=== PATIENT | male | born 1960 ===

== ENCOUNTER 2017-02-05 07:30 | Inpatient (IN) | payer OTHER ==
[2017-01-06 10:41] VITALS: BMI 29.2
[2017-04-10 07:01] LABS: BASO # 0.07 K/mm3 (0.0-2.0); BASO % 0.9 % (0.0-3.0); EOS # 1.6 (0.0-0.7); EOS % 19.8 % (1.5-5.0); GRAN # 2.8 (1.4-6.5); GRAN % 35.8 % (50.0-68.0); HEMATOCRIT 38.1 % (42.0-52.0); LYMPH # 2.9 (1.2-3.4); MEAN CORPUSCULAR HEMOGLOBIN 29.1 pg (25.0-35.0); MEAN CORPUSCULAR HGB CONC 33.9 g/dl (31.0-37.0); MEAN PLATELET VOLUME 10.2 fl (7.0-11.0); MONO # 0.5 (0.1-0.6); MONO % 6.5 % (1.0-6.0); RED CELL DISTRIBUTION WIDTH 12.7 % (11.5-14.5); WHITE BLOOD COUNT 7.8 10^3/ul (4.5-11.0)
[2017-04-10 07:07] LABS: INR 0.99 (0.93-1.08); PARTIAL THROMBOPLASTIN TIME 25.7 Seconds (23.7-30.8)
[2017-04-10] MEDS ORDERED: Bupivacaine 0.5% Inj(30mL) ONE (07:13)
[2017-04-10] MEDS ORDERED: Absorbable Gelatin Sponge Size 100 ONE (07:13)
[2017-04-10] MEDS ORDERED: Bacitracin Ointment 30 GM TUBE ONE (07:13)
[2017-04-10] MEDS ORDERED: Thrombin Topical 20,000 Intl Units Spray Kit TOP ONE (07:13)
[2017-04-10] MEDS ORDERED: Lidocaine 1% w Epi 1:100,000 Inj ONE (07:13)
[2017-04-10 07:28] LABS: BLOOD UREA NITROGEN 13 mg/dL (7-21); CARBON DIOXIDE 25 mmol/L (21-33); CHLORIDE 107 mmol/L (95-110); GFR AFRICAN-AMERICAN > 60; GLUCOSE,RANDOM 159 mg/dL (70-110); POTASSIUM 4.1 mmol/L (3.6-5.0); SODIUM 143 mmol/L (132-148)
[2017-04-10] MEDS ORDERED: Propofol 10 mg/ml 2,000 MG/200 ML VIAL ONE (07:34)
[2017-04-10] MEDS ORDERED: Remifentanil 2 MG PDS IV ONE ×2 (07:34→12:06)
[2017-04-10] MEDS ORDERED: Heparin 10,000 Units/ml ONE (07:56)
[2017-04-10] MEDS ORDERED: Vancomycin 1 g Inj ONE (08:46)
[2017-04-10] MEDS ORDERED: Rocuronium 10 mg/ml (5 ml) ONE (10:33)
[2017-04-10] MEDS ORDERED: Succinylcholine 200 mg/10 ml Inj IV ONE (10:33)
[2017-04-10] MEDS ORDERED: Morphine 4 mg/ml ISec ONE (10:34)
[2017-04-10] MEDS ORDERED: Sodium Chloride 0.9% 10 ML IV ONE (11:38)
[2017-04-10] MEDS ORDERED: Morphine 1 mg/ml preservative-free Inj(Duramorph) ONE (12:28)
[2017-04-10] MEDS ORDERED: HYDROmorphone 0.5 mg/0.5 ml ISec IVP PRN ×2 (13:02→13:12)
[2017-04-10] MEDS ORDERED: Morphine PCA 1 mg/ml (25ml) 25 ML IV PRN (13:10)
[2017-04-10] MEDS ORDERED: ACETAMINOPHEN 500 MG PO PRN ×2 (13:13→13:19)
[2017-04-10] MEDS ORDERED: Potassium Chl 10 mEq in D5-1/2 10 ML in Dextrose 5%/0.45% NS 1,000 ML IV SCH (13:30)
[2017-04-10] MEDS ORDERED: HYDROmorphone 0.5 mg/0.5 ml ISec ONE (13:32)
[2017-04-10] MEDS ORDERED: Potassium Chl 10 mEq in D5-1/2 1,000 ML IV SCH (13:45)
--- NOTE | 2017-04-10 15:47 | RAD ---
PROCEDURE: Fluoroscopy up to 1 hour HISTORY: L 4-5 , L 5 - S 1 DECOMPRESSION / FIXATION FUSION COMPARISON: TECHNIQUE: Fluoroscopy was provided in the operating room. 72 seconds of fluoroscopy time. Two images were submitted FINDINGS: There has been intrapedicular and intradiscal fusion at L4-5 and L5-S1 IMPRESSION: As above
[2017-04-10] MEDS ORDERED: HYDROmorphone 0.2 mg/ml (25ml) 25 ML IV PRN (15:49)
[2017-04-10] MEDS: Lactated Ringer's 1,000 ML IV SCH (16:00)
[2017-04-10] MEDS ORDERED: Pneumococcal 23-Valent Vaccine IM ONE (16:42)
[2017-04-10] MEDS: Insulin Reg-LOW-Coverage SC SCH ×2 (17:22→22:11)
[2017-04-10] MEDS ORDERED: Non Formulary Medication (Simvastatin [Simvastatin] 20 MG) PO SCH (18:00)
--- NOTE | 2017-04-10 20:04 | CP.PCM.HP ---
<KAELA HUGO - Last Filed: 04/10/17 19:57> History of Present Illness - History of Present Illness History of Present Illness: CC: S/P L3-4, 4-5 Decompression HPI: Mr. Paz is a 56 year old male with a past medical history significant for HTN, HLD, DM2, BPH, and disc disease who presented for post- operative observation of L3-4, 4-5 decompression. Patient reports that he began to have problems in his back starting in 2013 when he fell at work while lifting heavy object. He had managed the back pain conservatively, with NSAID's and one steroidal injection, until the pain became unbearable. Patient reports that his only pain is associated with his surgical sight and that he can already tell that the pain that was radiating down to his legs has resolved. He reports no other symptoms at this time. He denies headache, fever, chills, weight loss, changes in his vision, dysphagia, cough, shortness of breath, pleurisy, chest pain, palpitations, N/V, diarrhea, constipation, fecal incontinence or any urinary symptoms (including incontinence). PMH: HTN, HLD, DM2, BPH, and disc disease PSH: 2 reconstructive R ankle surgeries with titanium screws placed Family: DM2 in both parents and brother Social: Denies tobacco, alcohol or illicit drug use Allergies: NKDA Home Medications: As per MAR Present on Admission - Present on Admission Any Indicators Present on Admission: No Review of Systems - Review of Systems Review of Systems: Please refer to HPI Past Patient History - Past Social History Smoking Status: Never Smoked - CARDIAC Hx Cardiac Disorders: Yes Hx Hypercholesterolemia: Yes Hx Hypertension: Yes Hx Pacemaker: No - PULMONARY Hx Respiratory Disorders: No - NEUROLOGICAL Hx Neurological Disorder: No - HEENT Hx HEENT Problems: No - RENAL Hx Chronic Kidney Disease: No - ENDOCRINE/METABOLIC Hx Endocrine Disorders: Yes Hx Diabetes Mellitus Type 2: Yes - HEMATOLOGICAL/ONCOLOGICAL Hx Blood Disorders: No - INTEGUMENTARY Hx Dermatological Problems: No - MUSCULOSKELETAL/RHEUMATOLOGICAL Hx Musculoskeletal Disorders: Yes Hx Falls: Yes Hx Fractures: Yes (RIGHT ANKLE SX WITH 2 HARDWARE NOW ONE SCREW.LUMBAR DISC DERANGEMENT.) - GASTROINTESTINAL Hx Gastrointestinal Disorders: Yes (CONSTIPATION) - GENITOURINARY/GYNECOLOGICAL Hx Genitourinary Disorders: Yes Hx Prostate Problems: Yes (BPH) - PSYCHIATRIC Hx Psychophysiologic Disorder: No Hx Emotional Abuse: No Hx Physical Abuse: No Hx Substance Use: No - SURGICAL HISTORY Hx Surgeries: Yes (LUMBAR DISC DERANGEMENT PL3-21 DECOMPRESSION,L4-S1 FIXATION AND FUSION.04/03) Other/Comment: RIGHT ANKLE SURGERY WITH HARDWARE X 2 NOW HAS ONE SCREW. - ANESTHESIA Hx Anesthesia Reactions: No Hx Malignant Hyperthermia: No Meds Allergies/Adverse Reactions: Allergies Allergy/AdvReac Type Severity Reaction Status Date / Time No Known Allergies Allergy Verified 04/10/17 14:48 Physical Exam - Constitutional Appears: Non-toxic, No Acute Distress - Head Exam Head Exam: ATRAUMATIC, NORMOCEPHALIC - Eye Exam Eye Exam: EOMI, Normal appearance, PERRL Pupil Exam: NORMAL ACCOMODATION - ENT Exam ENT Exam: Mucous Membranes Moist, Normal Exam - Neck Exam Neck exam: Positive for: Full Rom, Normal Inspection. Negative for: Tenderness - Respiratory Exam Respiratory Exam: Clear to Auscultation Bilateral, NORMAL BREATHING PATTERN. absent: Rales, Rhonchi, Wheezes, Respiratory Distress - Cardiovascular Exam Cardiovascular Exam: REGULAR RHYTHM, RRR, +S1, +S2. absent: Tachycardia, Systolic Murmur - GI/Abdominal Exam GI & Abdominal Exam: Normal Bowel Sounds, Soft. absent: Distended, Firm, Guarding, Tenderness - Exam Exam: absent: Bladder Distension - Extremities Exam Extremities exam: Positive for: normal capillary refill, pedal pulses present. Negative for: calf tenderness, pedal edema - Back Exam Back exam: paraspinal tenderness, vertebral tenderness Additional comments: post surgical wound dressing from approximately T8 to anal cleft is clean dry and intact - Neurological Exam Neurological exam: Alert, Oriented x3 - Psychiatric Exam Psychiatric exam: Normal Affect, Normal Mood - Skin Skin Exam: Dry, Intact, Normal Color, Warm Results - Vital Signs Recent Vital Signs: Last Vital Signs Temp 98.6 F 04/10/17 16:21 Pulse 113 H 04/10/17 17:08 Resp 22 04/10/17 16:21 BP 176/96 H 04/10/17 17:08 Pulse Ox 96 04/10/17 16:21 - Labs Result Diagrams: 04/10/17 06:40 04/10/17 06:40 Labs: Laboratory Results - last 24 hr 04/10/17 04/10/17 04/10/17 06:40 06:40 06:40 WBC 7.8 RBC 4.43 Hgb 12.9 L Hct 38.1 L MCV 86.0 MCH 29.1 MCHC 33.9 RDW 12.7 Plt Count 263 MPV 10.2 Gran % 35.8 L Lymph % (Auto) 37.0 H Gray % (Auto) 6.5 H Eos % (Auto) 19.8 H Baso % (Auto) 0.9 Gran # 2.80 Lymph # 2.9 Gray # 0.5 Eos # 1.6 H Baso # 0.07 PT 10.7 INR 0.99 APTT 25.7 Sodium 143 Potassium 4.1 Chloride 107 Carbon Dioxide 25 Anion Gap 15 BUN 13 Creatinine 1.0 Est GFR ( Amer) > 60 Est GFR (Non-Af Amer) > 60 POC Glucose (mg/dL) Random Glucose 159 H Calcium 9.0 Blood Type Antibody Screen BBK History Checked 04/10/17 04/10/17 06:40 16:34 WBC RBC Hgb Hct MCV MCH MCHC RDW Plt Count MPV Gran % Lymph % (Auto) Gray % (Auto) Eos % (Auto) Baso % (Auto) Gran # Lymph # Gray # Eos # Baso # PT INR APTT Sodium Potassium Chloride Carbon Dioxide Anion Gap BUN Creatinine Est GFR ( Amer) Est GFR (Non-Af Amer) POC Glucose (mg/dL) 225 H Random Glucose Calcium Blood Type O POSITIVE Antibody Screen Negative BBK History Checked Patient has bt Assessment & Plan - Assessment and Plan (Free Text) Assessment: 56 year old male with a past medical history significant for HTN, HLD, DM2, BPH , and disc disease who presented for post-operative observation of L3-4, 4-5 decompression Plan: 1. S/P L3-4, 4-5 decompression -IVF: LR at 100cc/hr -Pain Control: Dilaudid 0.5mg IVP Q2H PRN and Tylenol 650mg Q6H PRN -UOP: Mosher Catheter in place with approximately 700ml of yellow urine -Diet: Hearth Healthy Carbohydrat Modified, may eat as tolerated -continue ferrous sulfate and ascorbic acid -wound Care team consulted, appreciate all assistance in this patient's care -afebrile since admission to hospital -PT/OT evaluation and treatment as tolerated -will follow up neurosurgical recommendations 2. HTN -continue Lopressor -Hydralazine 10mg IVP Q6H PRN for SBP over 170mmHG -continue to monitor 3. HLD -continue lipitor 4. DM2 -continue metformin -SSI-Low ACHS -Fingersticks ACHS -Carbohydrate Consistent Diet-Moderate 5. BPH -continue flomax -mosher catheter in place 6. GI/DVT Prophylaxis -Protonix/scd's Patient seen and case discussed with attending, Dr. Holly Estrada. - Date & Time Date: 04/10/17 Time: 16:00 Decision To Admit - Pt Status Changed To: Hospital Disposition Of: Inpatient Admission - Admit Certification Admit to Inpatient:: After my assessment, the patient will require hospitalization for at least two midnights. This is because of the severity of symptoms shown, intensity of services needed, and/or the medical risk in this patient being treated as an outpatient. - . Bed Request Type: Med/Surg <Holly Estrada - Last Filed: 04/12/17 10:27> Results - Vital Signs Recent Vital Signs: Last Vital Signs Temp 99.8 F H 04/12/17 08:45 Pulse 120 H 04/12/17 08:45 Resp 20 04/12/17 08:45 BP 145/92 H 04/12/17 08:45 Pulse Ox 95 04/11/17 16:22 - Labs Result Diagrams: 04/12/17 08:00 04/12/17 08:00 Labs: Laboratory Results - last 24 hr 04/11/17 04/11/17 04/11/17 09:11 11:27 16:37 WBC RBC Hgb Hct MCV MCH MCHC RDW Plt Count MPV Gran % Lymph % (Auto) Gray % (Auto) Eos % (Auto) Baso % (Auto) Gran # Lymph # Gray # Eos # Baso # Sodium Potassium Chloride Carbon Dioxide Anion Gap BUN Creatinine Est GFR ( Amer) Est GFR (Non-Af Amer) POC Glucose (mg/dL) 192 H 153 H Random Glucose Calcium Phosphorus Magnesium Total Bilirubin AST ALT Alkaline Phosphatase Total Protein Albumin Globulin Albumin/Globulin Ratio Hepatitis A IgM Ab Negative Hep Bs Antigen Negative Hep B Core IgM Ab Negative Hepatitis C Antibody Negative 04/11/17 04/12/17 04/12/17 21:20 07:16 07:41 WBC RBC Hgb Hct MCV MCH MCHC RDW Plt Count MPV Gran % Lymph % (Auto) Gray % (Auto) Eos % (Auto) Baso % (Auto) Gran # Lymph # Gray # Eos # Baso # Sodium Potassium Chloride Carbon Dioxide Anion Gap BUN Creatinine Est GFR ( Amer) Est GFR (Non-Af Amer) POC Glucose (mg/dL) 161 H 191 H Random Glucose Calcium Phosphorus 3.1 Magnesium 1.0 L* Total Bilirubin AST ALT Alkaline Phosphatase Total Protein Albumin Globulin Albumin/Globulin Ratio Hepatitis A IgM Ab Hep Bs Antigen Hep B Core IgM Ab Hepatitis C Antibody 04/12/17 04/12/17 08:00 08:00 WBC 13.5 H D RBC 2.96 L Hgb 8.6 L Hct 25.6 L MCV 86.5 MCH 29.1 MCHC 33.6 RDW 12.5 Plt Count 184 MPV 10.3 Gran % 76.8 H Lymph % (Auto) 15.0 L Gray % (Auto) 7.7 H Eos % (Auto) 0.4 L Baso % (Auto) 0.1 Gran # 10.36 H Lymph # 2.0 Gray # 1.0 H Eos # 0.1 Baso # 0.02 Sodium 139 Potassium 3.7 Chloride 103 Carbon Dioxide 27 Anion Gap 13 BUN 9 Creatinine 0.9 Est GFR ( Amer) > 60 Est GFR (Non-Af Amer) > 60 POC Glucose (mg/dL) Random Glucose 173 H Calcium 8.1 L Phosphorus Magnesium Total Bilirubin 1.2 AST 84 H ALT 55 Alkaline Phosphatase 66 Total Protein 5.8 Albumin 3.0 Globulin 2.8 Albumin/Globulin Ratio 1.1 Hepatitis A IgM Ab Hep Bs Antigen Hep B Core IgM Ab Hepatitis C Antibody Attending/Attestation - Attestation I have personally seen and examined this patient.: Yes I have fully participated in the care of the patient.: Yes I have reviewed all pertinent clinical information: Yes Notes (Text): I have seen and examined the patient at bedside. Agree with the above note with the following additions/ exceptions: Briefly this is 56 year old male with history of HTN, HLD, DM2, BPH, and lumbar radiculopathy who underwent L3-4, 4-5 decompression today by neurosurgeon. His pain is being manged by NS. Continue mosher catheter for now. Continue lopressor aand metformin. Add ISS. Continue flomax. Upon discharge patient will follow up with PMD of choice. Dr Holly Estrada
[2017-04-10] MEDS: HYDROmorphone 0.5 mg/0.5 ml ISec IVP PRN ×2 (20:25→23:52)
--- NOTE | 2017-04-10 22:01 | OP ---
PROCEDURE DATE: PREOPERATIVE DIAGNOSES: Lumbar disk derangement with stenosis and chronic low back pain with radiculopathy. POSTOPERATIVE DIAGNOSES: Lumbar disk derangement with stenosis and chronic low back pain with radiculopathy with gross instability noted in L5-S1. SURGEON: Puneet Bledsoe MD TYPE OF ANESTHESIA: General endotracheal. ESTIMATED BLOOD LOSS: 400 mL/125 mL returned by [employer]. COMPLICATIONS: None. JUSTIFICATION: The patient is status post a significant fall on the job. Since then, he has been suffering with severe low back pain with radiation to his lower extremities. He has failed rather extensive conservative workup. MRI documented disk derangement with herniation, stenosis, annular tears at both L4-L5 and L5-S1 with stenosis at L3-L4. There was a question of a mild sublux at L5-S1. The patient was offered the possibility of operative intervention by decompression diskectomy and interbody fusion at the lower levels and decompression at L3-L4. The nature of this recommendation, the rationale behind it, potential risks and complications, realistic chance of success, alternatives, recovery time, correction outlook all discussed at length through a frog catcher. He fully understood all the above and elected to proceed as offered. DESCRIPTION OF PROCEDURE: The patient was taken to the operating room. He was intubated. He was anesthetized. He was hooked up to electrophysiologic monitor and was carefully placed on the OR table in the prone position on a Gagan frame with maximal flexure at L5, only to get his belly above the bed. Care was taken to protect his face, eyes, endotracheal tube, and all bony prominences. The entire low back region was then scrubbed with acetone scrubbing and draped. The incision was traced out from L3 through the sacrum. This was infiltrated with lidocaine. After prepping and draping, the incision was made with a #10-blade knife, carried down to the level of fascia. The Bovie cautery was used to incise the fascia, strip the paraspinal muscles off the spinous processes and lamina of L3 and up to the sacrum. A confirmatory x-ray was taken. The exposure was then widened out laterally bilaterally to expose the transverse processes of L4, L5, and the sacral ala bilaterally. Bleeding was controlled throughout with Bovie cautery and thrombinated powdered Gelfoam. At this point, harvestation was performed. A 5-gauge trocar was inserted into the superior-posterior iliac crest on the right. Approximately 120 mL of bone marrow was then harvested. This was then spun down to obtain the bone marrow. Mesenchymal cells were used in the fusion. The decompression was done by removing the spinous process at S1, L5, and L4 and the bottom of L3. This was done with a Leksell rongeur. The lamina were further thinned in this manner. This bone was later saved for bone marrow harvestation. Of note, it was at this point that was noted gross instability of the L5-S1 level. The lamina was essentially floating indicating a complete traumatic spondylolisthesis, using small bites of a Kerrison and a Leksell rongeur essentially to remove the lamina of L5 in toto. We continued the laminectomy all the way through L4 and inferior two-thirds of L3. We then widened it out laterally bilaterally. At L3-L4, where we were only decompressing and we wanted to do the minimal decompression as possible, we did a mild medial facetectomy and mostly removed ligament flavum, which was causing most of the compression. We left the facet joints and their capsules entirely intact. At L4-L5 and L5-S1, we performed generous medial facetectomies. Of course at L5-S1, the facet had been entirely removed by simply lifting up the lamina. We exposed both disk spaces widely bilaterally. The epidural veins were coagulated with bipolar cautery. At this point, we performed the diskectomy at L5-S1. We gently retracted the left S1 nerve root medially, incised the disk, removed disk materials with rongeurs and then used 8 x 11 mm scrapers to further remove all disk materials, soft tissue, as well as annulus beginning at the claudication, which was completed with very large curette. Additionally, there was a central herniation that we removed by using a downbiting curette, forcing it into the disk space and thus removing it. This identical procedure was then performed on the right side, after which we packed all bone grafting material, which included chopped up products of decompression, additional allograft, bone matrix protein, liberally into the disk space. We then placed a 9 x 11 mm carbon fiber fusion case packed with bone grafting material. This was tapped into disk space until it was well seated and counter sunk. This was confirmed visually and fluoroscopically. The identical bone grafting and implant was then placed on the left side and again lateral fluoroscopy and visual inspection confirmed excellent position of both of these grafts. We then performed the same procedure at right L4-L5. At this time beginning on the right side, gently retracted the L5 nerve root medially, incised the disk, emptied it with rongeurs, used 11 x 8 mm scrapes, completely removing all disk material, decorticating the endplate above and below with rose marie and large curettes. Again, this procedure was then performed back on the left side after which we again tacked the disk space with all bone grafting material. We again placed a 9 x 11 mm carbon fiber fusion case implant, tapped it in until it was counter sunk and then again this was again performed back on the right side and again visual inspection and lateral fluoroscopy confirmed excellent position of both of these implants. At this point, we used a high speed drill to decorticate the lateral surfaces through the posterolateral fusion, which included the transverse processes of L4-L5, the lateral pars, the lateral facet and a sacral ala. At this point, we turned our attention to the placement of the pedicular screws. The technique was used by identifying the thecal entrance visually and fluoroscopically drilling the cortical bone, passing a gear shift down the barrel of the pedicle into the vertebrae and then placing the appropriate size screw. Additionally, the passage way was tested with a ball-tip probe to ensure circumferential bone and additionally the gearshift and each screw was stimulated with electrocautery while monitoring EMG activity to ensure there was no evidence of electrophysiological breech. Using this technique, on the right side we placed a 50 mm length and 6.0 diameter screw at L4, on the left the same diameter 45 mm length at L5 bilaterally in place 6.0 diameter screws, 40 mm length, at last the S1 we placed bilaterally 7.0 diameter screws, 40 mm length. No screw elicited any EMG activity and both lateral and AP fluoroscopy confirmed excellent position of all 6 of these screws. At this point, we placed the appropriate size titanium rods and the 3 screw head on each side. These were then locked in place with locking nuts and each locking nut was torque wrenched tight. We then placed the appropriate size cross-connector and torque wrenched each connection site tight as well. At this point, we packed all remaining bone grafting material liberally into the posterolateral gutters to achieve the posterolateral fusion. At this point, we ensured that there was no remaining foreign matter, bone graft, etc., and/or around the epidural space. This was gently irrigated with antibiotic solution. A layer of thrombinated-powered Gelfoam followed by layer of solid Gelfoam was placed in the epidural space. Bleeding was noted to be completely controlled at this point in time. We then reapproximated the muscle using interrupted 0 Vicryl. As the patient is a diabetic, we placed on Bacitracin powered above the muscle between the fascia. The fascia was then closed using interrupted 0 Vicryl. The wound copiously irrigated with antibiotic solution. A further layer of vancomycin was placed above the fascia. The subcutaneous was closed using interrupted 2-0 Vicryl and the skin was closed using wilfrido. Bacitracin ointment and a heavy dressing was placed. The patient was turned back onto a supine position. He was extubated without difficulty, noted moving all groups of both lower extremities with excellent strength on his way to recovery room. All counts were correct. There were no complications of either sensory evoke potentials and free-running EMG remained stable over the course of this procedure. Puneet Bledsoe MD
[2017-04-11] MEDS: HYDROmorphone 0.5 mg/0.5 ml ISec IVP PRN ×9 (05:49→22:42)
[2017-04-11 07:20] LABS: BASO # 0.02 K/mm3 (0.0-2.0); BASO % 0.2 % (0.0-3.0); EOS % 0.5 % (1.5-5.0); GRAN # 5.35 (1.4-6.5); GRAN % 65.5 % (50.0-68.0); HEMATOCRIT 26.9 % (42.0-52.0); LYMPH # 1.9 (1.2-3.4); LYMPH % 22.8 % (22.0-35.0); MEAN CELL VOLUME 85.1 fl (80.0-105.0); MEAN CORPUSCULAR HEMOGLOBIN 29.1 pg (25.0-35.0); MEAN CORPUSCULAR HGB CONC 34.2 g/dl (31.0-37.0); MEAN PLATELET VOLUME 10.1 fl (7.0-11.0); MONO # 0.9 (0.1-0.6); RED CELL DISTRIBUTION WIDTH 12.5 % (11.5-14.5); WHITE BLOOD COUNT 8.2 10^3/ul (4.5-11.0)
--- NOTE | 2017-04-11 07:21 | OP ---
PROCEDURE DATE: 04/10/2017 PREOPERATIVE DIAGNOSES: 1. Disk derangement L4-5, L5-S1. 2. Spinal stenosis L3-S1. POSTOPERATIVE DIAGNOSES: 1. Disk derangement L4-5, L5-S1. 2. Spinal stenosis L3-S1. PROCEDURE: 1. Posterior lumbar interbody and lateral fusion of L4-5, L5-S1. 2. L3-S1 lumbar decompression. 3. Use of intervertebral devices. 4. Use of segmental spinal instrumentation. 5. Use of autograft by means of bone marrow aspiration. SURGEON: Timbo Em MD TYPE OF ANESTHESIA: General endotracheal tube intubation. PROCEDURE IN DETAIL: The patient was brought to the operating room and general anesthesia was achieved. Spinal cord monitoring leads were placed throughout the patient's body. Real time monitoring was done by lift team technician in the room. Remote monitoring done by a physician as well. Intravenous antibodies were administered and sequential compression boots were placed to each of patient's legs. A George catheter was inserted after the antibiotics were administered and the patient was transferred and was placed in prone position on the operating table on a Gagan frame, keeping the abdomen free from pressure anteriorly. Care was taken to protect the elbows and knees from pressure points. A sterile drape was used to seal the patient's perineal region from the operative field and his back was scrubbed and then sterilely prepped and draped. Level of the incision was noted under fluoroscopy and infiltrated lidocaine with epinephrine. An incision was made sharply in the midline taking out subcutaneous tissue with sharp and blunt dissection. Hemostasis was achieved using electrocautery. Fascia was divided and stripped laterally with Ray elevators to take the tissue off the spinous processes and lamina each side after the level of the transverse processes at the L4 and L5 levels along with the sacral ala on each side. Hemostasis was achieved with electrocautery and thrombinated Gelfoam powder. Fluoroscopic views confirmed at the appropriate levels. A Litzy bone cutter and Leksell rongeur were used to remove the spinous processes and thinned down the lamina. Laminectomy was then carried out in a caudad-cephalad fashion using Kerrison rongeurs. At the 4-5 and 5-1 levels, the laminectomy was taken out laterally far enough that we could easily pass a 9 x 11 trial broach to confirm that we had room for intervertebral devices later in the case. The patient had fairly significant stenosis due to the hypertrophied ligamentum up at the 3-4 level, but again this was decompressed from 3-[address] to the sacrum. Hemostasis was achieved with thrombinated Gelfoam powder as well as bipolar cautery. A trocar at that time was placed in a posterior right ileum and 120 mL of bone marrow aspirate was obtained. This was passed off the table to the lift team technician who processed it to the harvest systems thoroughly. The collected mesenchymal stem cells was then returned to the OR table where they were used to soak strips and cubes to confirm sponge as well as process through the IC Chamber. The patient's laminar bone along with along with the IC Chamber bone and Optium putty was used to create excellent bone grafting substrate. Hemostasis was achieved at the marrow donor site with the use of thrombinated Gelfoam powder. We then turned our attention to the fusion part of the procedure. The thecal sac was gently retracted and the annulus at L5-S1 incised on the left side. Disk material was removed with endplate rose marie up to including a size 11 along with the pituitary rongeur and the ring and spoon curettes. In similar fashion on the right side, same technique was used to empty any remaining tissue from the disk space. The bone grafting substrate along with the marrow soaked confirmed cubes were packed into the disk space and a 9 x 11 graft packed cage was then tamed into place and countersunk. We moved back to the left side and inspected the area for any remaining disk material and then the bone grafting substrate and marrow soak cubes were packed into the disk space and another 9 x 11 graft packed cage was inserted and countersunk. Hemostasis was achieved with bipolar cautery as well as thrombinated Gelfoam powder. We then moved up to the 4-5 level where in similar fashion the annulus was incised and disk material removed using the pituitary rongeur and the endplate rose marie up to including size 11. Ring and spoon curettes were then used to remove any remaining tissue from the endplates. Similar technique was used on the left side, then to completely empty out the disk space. Again the marrow soaked cubes and bone grafting substrate were packed into the empty disk space and another graft pack 9 x 11 cage inserted. We then came back to the right side. Some remaining disk material that was seen in the midline was removed and then the disk space filled with bone grafting substrate and the marrow soaked cubes and another the left 9 x 11 graft packed cage was tamped into place and countersunk. The high speed drill was then used to decorticate the transverse processes of L4 and L5 in each side along with the sacral ala. The 4-5 and 5-1 facets were decorticated well. It should be noted that the time of the exposure, marked amount of laxity was noted at the 5-1 level. There was complete incompetence of the posterior elements before any other decompression was done. Very similar to what would be seen when the spondylolisthesis deformity with again incompetence to the pars on each side. The superior facets had been removed at the time of the decompression due to the laxity and they were morselized and added to the bone grafting substrate. After the decortication under fluoroscopic guidance, an entry point was made for the right L4 pedicle with high speed drill. Gearshift tool was used to create a channel through the pedicle and the bone integrity confirmed with a ball tip probe and a 6.0 x 50 mm EXPEDIUM screw inserted. In similar fashion, the drill and the gearshift tool along the ball tip probe were used on the left side and a 45 mm x 6.0 EXPEDIUM screw inserted. Stimulation revealed no electrophysiologic abnormality. We then moved down to the L5 level where the drill was used to create the entry points of the left L5 screw under fluoroscopic guidance. Gearshift tool create the channel through the pedicle and the bone integrity confirmed with the ball tip probe and a 6.0 x 50 mm screw was inserted. On the right side, similar technique again was used with all the instruments and another 50 x 6.0 screw was inserted. Once again, stimulation of the gearshift tool on each side along with the shank and top of each screw revealed no abnormalities. We then moved down to the sacral level. A trial shannan was placed in the L4 and L5 screws to locate the best level for the S1 screw. Using fluoroscopic guidance, this was then used as a marker and a drill used to create the entry point. The gearshift tool created channel for the screw and bone integrity confirmed with the ball tip probe and 40 mm x 7.0 screw was inserted. Same technique was used on the left side, line up the other screws along with the drill and the gearshift tool. After the ball tip probe confirmed bone integrity, another 7.0 x 40 mm EXPEDIUM screw inserted. Pre-Cut lordotic 65 mm rods were then used to connect the 3 screws on each side and the shannan was secured to the screws using caps to tighten and then appropriately torqued. The midline was inspected for any bony debris and copiously irrigated with antibiotic solution. Hemostasis was achieved with thrombinated Gelfoam powder as well as bipolar cautery. A large piece of solid Gelfoam was used to cover the exposing neural elements. The remaining bone graft and substrate was packed laterally to bridge the decorticated transverse processes of L4 and L5 to the sacral ala on each side. An A6 CrossLink was then used to connect the 2 rods between the L4 and L5 screws to add rotational stability and this was appropriately tightened and torqued as well. Final AP and lateral fluoroscopic views with excellent position of the hardware as well as intervertebral devices. The wound was then closed in layers and interrupted sutures of 0 Vicryl for the muscle. This was then irrigated with some vancomycin powder placed on top of the muscle bed. The fascia was then approximated over this again with interrupted sutures of 0 Vicryl. The subcutaneous tissue was copiously irrigated with antibiotic solution. A 30 mL of 0.5% Marcaine injected to paraspinal muscles to help with postoperative pain relief. Remaining vancomycin powder was placed on top on the fascia and coated the subcutaneous tissues, which were then approximated using the interrupted sutures of 2-0 Vicryl. The skin was closed with wilfrido. Bacitracin ointment and a compressive dressing applied. The patient gently transferred back on to the stretcher in supine position. He is awake and extubated. He was taken to recovery room in stable condition, having tolerated the procedure well. ESTIMATED BLOOD LOSS: 400 mL. He received 3 liters of crystalloid during the operation and received 125 mL pack from the Cell Saver. He was actively moving all extremities and upon his arrival to recovery room, no prominent electrophysiologic abnormalities were noted. Timbo Em MD
[2017-04-11 07:51] LABS: ALB/GLOB RATIO 1.2 (1.1-1.8); ALKALINE PHOSPHATASE 62 U/L (38-133); ALT/SGPT 63 U/L (7-56); AST/SGOT 102 U/L (15-59); BILIRUBIN,TOTAL 0.9 mg/dL (0.2-1.3); BLOOD UREA NITROGEN 9 mg/dL (7-21); CALCIUM 8.1 mg/dL (8.4-10.5); CARBON DIOXIDE 26 mmol/L (21-33); CHLORIDE 105 mmol/L (98-107); GFR AFRICAN-AMERICAN > 60; GLUCOSE,RANDOM 183 mg/dL (70-110); POTASSIUM 3.4 mmol/L (3.6-5.0); SODIUM 140 mmol/L (132-148); TOTAL PROTEIN 5.7 g/dL (5.8-8.3)
[2017-04-11] MEDS ORDERED: Potassium Chloride 40 mEq/30 ml LIQ UD PO ONE (08:21)
[2017-04-11] MEDS: Insulin Reg-LOW-Coverage SC SCH ×3 (08:45→22:42)
--- NOTE | 2017-04-11 14:15 | CP.PCM.PN ---
<KAELA HUGO - Last Filed: 04/11/17 18:06> Subjective - Date & Time of Evaluation Date of Evaluation: 04/11/17 Time of Evaluation: 14:07 - Subjective Subjective: MEDICINE PROGRESS NOTE: Patient seen and assessed at bedside. Patient reports that his surgical site pain has not been relieved at all. Patient reports that it is still 10/10. He states the pain medication only minimally relieves his pain and that is effect is temporary. Patient denies any headache, dizziness, changes in his vision, fever, chest pain, palpitations, shortness of breath, cough, abdominal pain, N/V ,diarrhea, constipation, any urinary symptoms or any numbness/tingling/weakness of his extremities. Objective - Vital Signs/Intake and Output Vital Signs (last 24 hours): Temp Pulse Resp BP Pulse Ox 98.7 F 112 H 20 145/95 H 93 L 04/11/17 07:55 04/11/17 09:43 04/11/17 07:55 04/11/17 09:43 04/11/17 07:55 Intake and Output: 04/11/17 04/11/17 06:59 18:59 Intake Total 120 Output Total 1400 Balance -1280 - Medications Medications: Current Medications Acetaminophen (Tylenol 325mg Tab) 650 mg PO Q4H [facility] Last Admin: 04/11/17 05:46 Dose: 650 mg Ascorbic Acid (Vitamin C 500 Mg Tab) 500 mg PO DAILY [facility] Last Admin: 04/11/17 09:43 Dose: 500 mg Atorvastatin Calcium (Lipitor) 10 mg PO QPM [facility] Last Admin: 04/10/17 17:25 Dose: Not Given Ferrous Sulfate (Feosol) 324 mg PO TID [facility] Last Admin: 04/11/17 09:43 Dose: 324 mg Hydralazine HCl (Apresoline) 10 mg IVP Q6 PRN PRN Reason: Systolic Blood Pressure Last Admin: 04/10/17 21:16 Dose: 10 mg Hydromorphone HCl (Dilaudid) 0.5 mg IVP Q15M PRN PRN Reason: Pain, moderate (4-7) Hydromorphone HCl (Dilaudid) 0.5 mg IVP Q2 PRN PRN Reason: Pain, severe (8-10) Last Admin: 04/11/17 12:29 Dose: 0.5 mg Lactated Ringer's (Lactated Ringer's) 1,000 mls @ 100 drops/hr IV .Q24H [facility] Last Admin: 04/10/17 16:00 Dose: 100 drops/hr Insulin Human Regular (Humulin R Low) 0 units SC ACHS [facility] PRN Reason: Protocol Last Admin: 04/11/17 12:45 Dose: 1 units Metformin HCl (Glucophage) 850 mg PO TID [facility] Metoprolol Tartrate (Lopressor) 25 mg PO BID [facility] Last Admin: 04/11/17 09:43 Dose: 25 mg Non-Formulary Medication (Acetaminophen [Tylenol Extra Strength]) 500 mg PO BID PRN PRN Reason: Pain, moderate (4-7) Pantoprazole Sodium (Protonix Inj) 40 mg IVP DAILY [facility] Last Admin: 04/11/17 09:43 Dose: 40 mg Sennosides (Senokot Tab) 8.6 mg PO BID [facility] Last Admin: 04/11/17 09:43 Dose: 8.6 mg Tamsulosin HCl (Flomax) 0.4 mg PO QPM [facility] Last Admin: 04/10/17 17:25 Dose: Not Given - Labs Labs: 04/11/17 06:30 04/11/17 06:30 PT 10.7 Seconds (9.9-11.8) 04/10/17 06:40 INR 0.99 (0.93-1.08) 04/10/17 06:40 APTT 25.7 Seconds (23.7-30.8) 04/10/17 06:40 - Constitutional Appears: Non-toxic, No Acute Distress - Head Exam Head Exam: ATRAUMATIC, NORMOCEPHALIC - Eye Exam Eye Exam: EOMI, Normal appearance, PERRL Pupil Exam: NORMAL ACCOMODATION - ENT Exam ENT Exam: Mucous Membranes Moist, Normal Exam - Neck Exam Neck Exam: Full ROM, Normal Inspection. absent: Lymphadenopathy, Tenderness - Respiratory Exam Respiratory Exam: Clear to Ausculation Bilateral, NORMAL BREATHING PATTERN. absent: Rales, Rhonchi, Wheezes, Respiratory Distress - Cardiovascular Exam Cardiovascular Exam: REGULAR RHYTHM, RRR, +S1, +S2. absent: Tachycardia, Diastolic murmur, Murmur - GI/Abdominal Exam GI & Abdominal Exam: Soft, Normal Bowel Sounds. absent: Distended, Firm, Guarding, Tenderness - Exam Exam: absent: Bladder Distension - Extremities Exam Extremities Exam: Normal Capillary Refill, Normal Inspection. absent: Calf Tenderness, Pedal Edema - Back Exam Back Exam: paraspinal tenderness Additional comments: post surgical wound dressing from approximately T8 to anal cleft is clean dry and intact - Neurological Exam Neurological Exam: Alert, Awake, Oriented x3 - Psychiatric Exam Psychiatric exam: Normal Affect, Normal Mood - Skin Skin Exam: Dry, Intact, Normal Color, Warm Assessment and Plan - Assessment and Plan (Free Text) Assessment: 56 year old male with a past medical history significant for HTN, HLD, DM2, BPH , and disc disease who presented for post-operative observation of L3-4, 4-5 decompression Plan: 1. S/P L3-4, 4-5 decompression -IVF: LR at 100cc/hr -Pain Control: started Oxycontin 20mg PO Q12H, continue Dilaudid 0.5mg IVP Q2H PRN and Tylenol 650mg Q6H PRN -UOP: Mosher Catheter in place with approximately 450ml of yellow urine, will remove 04/11 if patient passes flatus, per neurosurgery -Diet: Hearth Healthy Carbohydrate Modified, may eat as tolerated -continue ferrous sulfate and ascorbic acid -wound care team consulted, appreciate all assistance in this patient's care -continue PT/OT, who recommends discharge to home (TCU if needed), with patient expressing he wants to go home upon discharge -will follow up neurosurgical recommendations 2. Transaminitis -AST/ALT: 102/63 -hepatitis panel negative -hepatic and gallbladder ultrasound pending 3. HTN -continue Lopressor -Hydralazine 10mg IVP Q6H PRN for SBP over 170mmHG -continue to monitor 4. HLD -continue lipitor 5. DM2 -increased Metformin to 850mg TID -A1C pending -continue SSI-Low ACHS -fingersticks ACHS -Carbohydrate Consistent Diet-Moderate 6. BPH -continue flomax -mosher catheter in place and draining well 7. GI/DVT Prophylaxis -Protonix/scd's Patient seen and case discussed with attending, Dr. Holly Estrada. <Holly Estrada - Last Filed: 04/12/17 10:35> Objective - Vital Signs/Intake and Output Vital Signs (last 24 hours): Temp Pulse Resp BP Pulse Ox 99.8 F H 120 H 20 145/92 H 95 04/12/17 08:45 04/12/17 08:45 04/12/17 08:45 04/12/17 08:45 04/11/17 16:22 Intake and Output: 04/12/17 04/12/17 06:59 18:59 Output Total 425 Balance -425 - Medications Medications: Current Medications Acetaminophen (Tylenol 325mg Tab) 650 mg PO Q6H PRN PRN Reason: Fever >100.4 F Last Admin: 04/11/17 21:05 Dose: 650 mg Ascorbic Acid (Vitamin C 500 Mg Tab) 500 mg PO DAILY [facility] Last Admin: 04/12/17 09:13 Dose: 500 mg Atorvastatin Calcium (Lipitor) 10 mg PO QPM [facility] Last Admin: 04/11/17 18:20 Dose: 10 mg Azithromycin (Zithromax) 500 mg PO DAILY [facility] PRN Reason: Protocol Last Admin: 04/12/17 09:13 Dose: 500 mg Bacitracin (Bacitracin) 0 gm TOP DAILY [facility] Last Admin: 04/12/17 09:14 Dose: 1 u Ferrous Sulfate (Feosol) 324 mg PO TID [facility] Last Admin: 04/12/17 09:13 Dose: 324 mg Hydralazine HCl (Apresoline) 10 mg IVP Q6 PRN PRN Reason: Systolic Blood Pressure Last Admin: 04/10/17 21:16 Dose: 10 mg Hydromorphone HCl (Dilaudid) 0.5 mg IVP Q2 PRN PRN Reason: Pain, severe (8-10) Last Admin: 04/12/17 07:51 Dose: 0.5 mg Lactated Ringer's (Lactated Ringer's) 1,000 mls @ 100 drops/hr IV .Q24H [facility] Last Admin: 04/11/17 16:55 Dose: 100 drops/hr Ceftriaxone Sodium (Rocephin 1 Gram Ivpb) 1 gm in 100 mls @ 100 mls/hr IVPB DAILY [facility] PRN Reason: Protocol Last Admin: 04/12/17 09:10 Dose: 100 mls/hr Ibuprofen (Motrin Tab) 400 mg PO Q6H PRN PRN Reason: Fever >100.4 F Insulin Human Regular (Humulin R Low) 0 units SC ACHS [facility] PRN Reason: Protocol Last Admin: 04/12/17 08:26 Dose: 1 units Metformin HCl (Glucophage) 850 mg PO TID [facility] Last Admin: 04/12/17 09:13 Dose: 850 mg Metoprolol Tartrate (Lopressor) 25 mg PO BID [facility] Last Admin: 04/12/17 09:13 Dose: 25 mg Non-Formulary Medication (Acetaminophen [Tylenol Extra Strength]) 500 mg PO BID PRN PRN Reason: Pain, moderate (4-7) Oxycodone HCl (Oxycontin Extended Release Tab) 20 mg PO Q12 [facility] Last Admin: 04/12/17 09:12 Dose: 20 mg Oxycodone/Acetaminophen (Percocet 5/325 Mg Tab) 1 tab PO Q4H PRN PRN Reason: Pain, Mild (1-3) Stop: 04/14/17 15:15 Pantoprazole Sodium (Protonix Ec Tab) 40 mg PO 0600 [facility] Last Admin: 04/12/17 07:52 Dose: 40 mg Sennosides (Senokot Tab) 8.6 mg PO BID [facility] Last Admin: 04/12/17 09:13 Dose: 8.6 mg Tamsulosin HCl (Flomax) 0.4 mg PO QPM [facility] Last Admin: 04/11/17 18:20 Dose: 0.4 mg - Labs Labs: 04/12/17 08:00 04/12/17 08:00 PT 10.7 Seconds (9.9-11.8) 04/10/17 06:40 INR 0.99 (0.93-1.08) 04/10/17 06:40 APTT 25.7 Seconds (23.7-30.8) 04/10/17 06:40 Attending/Attestation - Attestation I have personally seen and examined this patient.: Yes I have fully participated in the care of the patient.: Yes I have reviewed all pertinent clinical information, including history, physical exam and plan: Yes Notes (Text): I have seen and examined the patient at bedside. Agree with the above note with the following additions/ exceptions: Briefly this is 56 year old male with history of HTN, HLD, DM2, BPH, and lumbar radiculopathy who underwent L3-4, 4-5 decompression 1 day ag by neurosurgeon. His pain is being manged by NS. Currently he is on dilaudid 0.5 q2, oxycontin veda and percocet prn. Patient is on recliner. Complains of pain in the neck, lower back radiating in the left lower extremity. Continue mosher catheter for now. Blood sugar was noted to be high. Start ISS. Check hba1c. Increase metformin 850 TID. Continue lopressor. Encourage to use incentive spirometer. Continue flomax. Upon discharge patient will follow up with PMD of choice. Dr Holly Estrada
--- NOTE | 2017-04-11 14:20 | US ---
HISTORY: Elevated LFT's COMPARISON: None. TECHNIQUE: Sonographic evaluation of the right upper quadrant of the abdomen. FINDINGS: LIVER: Measures 14.3 cm in length. Normal echogenicity of the liver parenchyma. No mass. No intrahepatic bile duct dilatation. GALLBLADDER: [id number] gallbladder distention is appreciated. No cholelithiasis is a identified with the wall upper limits normal thickness at 2.5 mm. No pericholecystic fluid collection. COMMON BILE DUCT: Measures 3.9 mm. No stones. No dilatation. PANCREAS: The body of pancreas is unremarkable remainder obscured by overlying bowel gas. RIGHT KIDNEY: Measures 12.5 cm in length. Normal echogenicity. No calculus, mass, or hydronephrosis. AORTA: No aneurysmal dilatation. IVC: Unremarkable. OTHER FINDINGS: None . IMPRESSION: [id number] gallbladder distention is appreciated without cholelithiasis or pericholecystic fluid collection. Gallbladder wall appears upper limits normal thickness. Partial imaging of the pancreas with remainder the examination unremarkable.
--- NOTE | 2017-04-11 15:11 | CP.PCM.PN ---
Subjective - Date & Time of Evaluation Date of Evaluation: 04/11/17 Time of Evaluation: 15:06 - Subjective Subjective: SPINE - POD #1 Pt resting in bed. Was OOB to chair earlier. Complains of pain in neck as well as surgical site. Voiding via mosher. No flatus yet. VSS. Afebrile. Dressing clean and dry. Moving all extremities actively. Neuro grossly intact. Plan: Pt on Flomax pre-op so would be cautious re: d/c mosher. If + flatus by tomorrow prob remove at that time. Cont to mobilize as juan pablo w PT. Has 10 steps at home. Will start Oxycontin tonight and see if that begins to give any better relief than Dilaudid alone. Objective - Vital Signs/Intake and Output Vital Signs (last 24 hours): Temp Pulse Resp BP Pulse Ox 98.7 F 112 H 20 145/95 H 93 L 04/11/17 07:55 04/11/17 09:43 04/11/17 07:55 04/11/17 09:43 04/11/17 07:55 Intake and Output: 04/11/17 04/11/17 06:59 18:59 Intake Total 120 Output Total 1400 Balance -1280 - Medications Medications: Current Medications Acetaminophen (Tylenol 325mg Tab) 650 mg PO Q4H [facility] Last Admin: 04/11/17 05:46 Dose: 650 mg Ascorbic Acid (Vitamin C 500 Mg Tab) 500 mg PO DAILY [facility] Last Admin: 04/11/17 09:43 Dose: 500 mg Atorvastatin Calcium (Lipitor) 10 mg PO QPM [facility] Last Admin: 04/10/17 17:25 Dose: Not Given Ferrous Sulfate (Feosol) 324 mg PO TID [facility] Last Admin: 04/11/17 14:26 Dose: 324 mg Hydralazine HCl (Apresoline) 10 mg IVP Q6 PRN PRN Reason: Systolic Blood Pressure Last Admin: 04/10/17 21:16 Dose: 10 mg Hydromorphone HCl (Dilaudid) 0.5 mg IVP Q2 PRN PRN Reason: Pain, severe (8-10) Last Admin: 04/11/17 14:26 Dose: 0.5 mg Lactated Ringer's (Lactated Ringer's) 1,000 mls @ 100 drops/hr IV .Q24H [facility] Last Admin: 04/10/17 16:00 Dose: 100 drops/hr Insulin Human Regular (Humulin R Low) 0 units SC ACHS [facility] PRN Reason: Protocol Last Admin: 04/11/17 12:45 Dose: 1 units Metformin HCl (Glucophage) 850 mg PO TID [facility] Last Admin: 04/11/17 14:26 Dose: 850 mg Metoprolol Tartrate (Lopressor) 25 mg PO BID [facility] Last Admin: 04/11/17 09:43 Dose: 25 mg Non-Formulary Medication (Acetaminophen [Tylenol Extra Strength]) 500 mg PO BID PRN PRN Reason: Pain, moderate (4-7) Pantoprazole Sodium (Protonix Inj) 40 mg IVP DAILY [facility] Last Admin: 04/11/17 09:43 Dose: 40 mg Sennosides (Senokot Tab) 8.6 mg PO BID [facility] Last Admin: 04/11/17 09:43 Dose: 8.6 mg Tamsulosin HCl (Flomax) 0.4 mg PO QPM [facility] Last Admin: 04/10/17 17:25 Dose: Not Given - Labs Labs: 04/11/17 06:30 04/11/17 06:30 PT 10.7 Seconds (9.9-11.8) 04/10/17 06:40 INR 0.99 (0.93-1.08) 04/10/17 06:40 APTT 25.7 Seconds (23.7-30.8) 04/10/17 06:40
--- NOTE | 2017-04-11 16:34 | RAD ---
HISTORY: fever COMPARISON: 01/06/2017 FINDINGS: LUNGS: Minimal bibasilar infiltrates right greater than left PLEURA: No significant pleural effusion identified, no pneumothorax apparent. CARDIOVASCULAR: Normal. OSSEOUS STRUCTURES: No significant abnormalities. VISUALIZED UPPER ABDOMEN: Normal. OTHER FINDINGS: None. IMPRESSION: Minimal bibasilar infiltrates right greater than left
[2017-04-11] MEDS: Lactated Ringer's 1,000 ML IV SCH (16:55)
[2017-04-11] MEDS: oxyCODONE 20 mg ER Tab (oxyCONTIN) PO SCH (22:12)
--- NOTE | 2017-04-12 00:01 | CP.PCM.PN ---
Subjective - Date & Time of Evaluation Date of Evaluation: 04/12/17 Time of Evaluation: 05:00 - Subjective Subjective: Patient ran a fever, I was paged. Pt is s/p a surgical procedure and had a fever. I got a stat CXR which seemed to show RLL infiltrates. I have ordered empiric ABx to cover for CAP - Azithro, Rocephin. Objective - Vital Signs/Intake and Output Vital Signs (last 24 hours): Temp Pulse Resp BP Pulse Ox 102.8 F H 116 H 19 133/85 95 04/11/17 21:05 04/11/17 18:20 04/11/17 16:22 04/11/17 18:20 04/11/17 16:22 Intake and Output: 04/11/17 04/12/17 18:59 06:59 Output Total 425 Balance -425 - Medications Medications: Current Medications Acetaminophen (Tylenol 325mg Tab) 650 mg PO Q4H [facility] Last Admin: 04/11/17 05:46 Dose: 650 mg Acetaminophen (Tylenol 325mg Tab) 650 mg PO Q6H PRN PRN Reason: Fever >100.4 F Last Admin: 04/11/17 21:05 Dose: 650 mg Ascorbic Acid (Vitamin C 500 Mg Tab) 500 mg PO DAILY [facility] Last Admin: 04/11/17 09:43 Dose: 500 mg Atorvastatin Calcium (Lipitor) 10 mg PO QPM [facility] Last Admin: 04/11/17 18:20 Dose: 10 mg Bacitracin (Bacitracin) 0 gm TOP DAILY [facility] Ferrous Sulfate (Feosol) 324 mg PO TID [facility] Last Admin: 04/11/17 18:21 Dose: 324 mg Hydralazine HCl (Apresoline) 10 mg IVP Q6 PRN PRN Reason: Systolic Blood Pressure Last Admin: 04/10/17 21:16 Dose: 10 mg Hydromorphone HCl (Dilaudid) 0.5 mg IVP Q2 PRN PRN Reason: Pain, severe (8-10) Last Admin: 04/11/17 22:42 Dose: 0.5 mg Lactated Ringer's (Lactated Ringer's) 1,000 mls @ 100 drops/hr IV .Q24H [facility] Last Admin: 04/11/17 16:55 Dose: 100 drops/hr Ibuprofen (Motrin Tab) 400 mg PO Q6H PRN PRN Reason: Fever >100.4 F Insulin Human Regular (Humulin R Low) 0 units SC ACHS [facility] PRN Reason: Protocol Last Admin: 04/11/17 12:45 Dose: 1 units Metformin HCl (Glucophage) 850 mg PO TID [facility] Last Admin: 04/11/17 18:20 Dose: 850 mg Metoprolol Tartrate (Lopressor) 25 mg PO BID [facility] Last Admin: 04/11/17 18:20 Dose: 25 mg Non-Formulary Medication (Acetaminophen [Tylenol Extra Strength]) 500 mg PO BID PRN PRN Reason: Pain, moderate (4-7) Oxycodone HCl (Oxycontin Extended Release Tab) 20 mg PO Q12 [facility] Last Admin: 04/11/17 22:12 Dose: 20 mg Oxycodone/Acetaminophen (Percocet 5/325 Mg Tab) 1 tab PO Q4H PRN PRN Reason: Pain, Mild (1-3) Stop: 04/14/17 15:15 Pantoprazole Sodium (Protonix Inj) 40 mg IVP DAILY [facility] Last Admin: 04/11/17 09:43 Dose: 40 mg Sennosides (Senokot Tab) 8.6 mg PO BID [facility] Last Admin: 04/11/17 18:21 Dose: 8.6 mg Tamsulosin HCl (Flomax) 0.4 mg PO QPM [facility] Last Admin: 04/11/17 18:20 Dose: 0.4 mg - Labs Labs: 04/11/17 06:30 04/11/17 06:30 PT 10.7 Seconds (9.9-11.8) 04/10/17 06:40 INR 0.99 (0.93-1.08) 04/10/17 06:40 APTT 25.7 Seconds (23.7-30.8) 04/10/17 06:40
[2017-04-12] MEDS ORDERED: Amoxicillin-Clav 875-125 mg Tab PO SCH (00:15)
[2017-04-12] MEDS: HYDROmorphone 0.5 mg/0.5 ml ISec IVP PRN ×3 (05:11→20:37)
[2017-04-12] MEDS: Pantoprazole 40 mg EC Tab PO SCH (07:52)
[2017-04-12 08:14] LABS: BASO # 0.02 K/mm3 (0.0-2.0); BASO % 0.1 % (0.0-3.0); EOS # 0.1 (0.0-0.7); EOS % 0.4 % (1.5-5.0); GRAN # 10.36 (1.4-6.5); GRAN % 76.8 % (50.0-68.0); HEMATOCRIT 25.6 % (42.0-52.0); MEAN CELL VOLUME 86.5 fl (80.0-105.0); MEAN CORPUSCULAR HEMOGLOBIN 29.1 pg (25.0-35.0); MEAN CORPUSCULAR HGB CONC 33.6 g/dl (31.0-37.0); MEAN PLATELET VOLUME 10.3 fl (7.0-11.0); MONO % 7.7 % (1.0-6.0); RED CELL DISTRIBUTION WIDTH 12.5 % (11.5-14.5); WHITE BLOOD COUNT 13.5 10^3/ul (4.5-11.0)
[2017-04-12 08:26] LABS: ALB/GLOB RATIO 1.1 (1.1-1.8); ALKALINE PHOSPHATASE 66 U/L (38-133); ALT/SGPT 55 U/L (7-56); AST/SGOT 84 U/L (15-59); BILIRUBIN,TOTAL 1.2 mg/dL (0.2-1.3); BLOOD UREA NITROGEN 9 mg/dL (7-21); CALCIUM 8.1 mg/dL (8.4-10.5); CARBON DIOXIDE 27 mmol/L (21-33); CHLORIDE 103 mmol/L (98-107); GFR AFRICAN-AMERICAN > 60; GLUCOSE,RANDOM 173 mg/dL (70-110); POTASSIUM 3.7 mmol/L (3.6-5.0); SODIUM 139 mmol/L (132-148); TOTAL PROTEIN 5.8 g/dL (5.8-8.3)
[2017-04-12] MEDS: Insulin Reg-LOW-Coverage SC SCH ×3 (08:26→17:29)
[2017-04-12] MEDS: cefTRIAXone 1 gm 1 GM/100 ML BAG IVPB SCH (09:10)
[2017-04-12] MEDS: oxyCODONE 20 mg ER Tab (oxyCONTIN) PO SCH ×2 (09:12→21:45)
[2017-04-12] MEDS: Bacitracin Ointment 30 GM TUBE TOP SCH (09:14)
[2017-04-12 09:46] LABS: PHOSPHOROUS 3.1 mg/dL (2.5-4.5)
[2017-04-12] MEDS ORDERED: Magnesium Sulfate 2 GM in Sodium Chloride 0.9% 100 ML IVPB ONE (10:29)
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
[2017-04-12 11:31] LABS: IRON 10 ug/dL (45-180)
--- NOTE | 2017-04-12 11:39 | CP.PCM.PN ---
<Mitchell Acosta - Last Filed: 04/12/17 11:36> Subjective - Date & Time of Evaluation Date of Evaluation: 04/12/17 Time of Evaluation: 09:40 - Subjective Subjective: IM Progress Note, Mitchell Acosta PGY-2 Patient seen and examined at bedside. Pt reports neck pain minimally relieved by analgesics. Pt has a productive cough with yellow phlegm. As per nursing staff, pt experienced a fever overnight. Pt has a mosher in place. Pt has minimal appetite. Pt admits to headache and dizziness. He denied changes in his vision, fever, chest pain, palpitations, shortness of breath, cough, abdominal pain, N/V,diarrhea, constipation, any urinary symptoms or any numbness/tingling/ weakness of his extremities. Objective - Vital Signs/Intake and Output Vital Signs (last 24 hours): Temp Pulse Resp BP Pulse Ox 99.8 F H 120 H 20 145/92 H 95 04/12/17 08:45 04/12/17 08:45 04/12/17 08:45 04/12/17 08:45 04/11/17 16:22 Intake and Output: 04/12/17 04/12/17 06:59 18:59 Output Total 425 Balance -425 - Medications Medications: Current Medications Acetaminophen (Tylenol 325mg Tab) 650 mg PO Q6H PRN PRN Reason: Fever >100.4 F Last Admin: 04/11/17 21:05 Dose: 650 mg Ascorbic Acid (Vitamin C 500 Mg Tab) 500 mg PO DAILY [facility] Last Admin: 04/12/17 09:13 Dose: 500 mg Atorvastatin Calcium (Lipitor) 10 mg PO QPM [facility] Last Admin: 04/11/17 18:20 Dose: 10 mg Azithromycin (Zithromax) 500 mg PO DAILY [facility] PRN Reason: Protocol Last Admin: 04/12/17 09:13 Dose: 500 mg Bacitracin (Bacitracin) 0 gm TOP DAILY [facility] Last Admin: 04/12/17 09:14 Dose: 1 u Ferrous Sulfate (Feosol) 324 mg PO TID [facility] Last Admin: 04/12/17 09:13 Dose: 324 mg Hydralazine HCl (Apresoline) 10 mg IVP Q6 PRN PRN Reason: Systolic Blood Pressure Last Admin: 04/10/17 21:16 Dose: 10 mg Hydromorphone HCl (Dilaudid) 0.5 mg IVP Q2 PRN PRN Reason: Pain, severe (8-10) Last Admin: 04/12/17 07:51 Dose: 0.5 mg Lactated Ringer's (Lactated Ringer's) 1,000 mls @ 100 drops/hr IV .Q24H [facility] Last Admin: 04/11/17 16:55 Dose: 100 drops/hr Ceftriaxone Sodium (Rocephin 1 Gram Ivpb) 1 gm in 100 mls @ 100 mls/hr IVPB DAILY [facility] PRN Reason: Protocol Last Admin: 04/12/17 09:10 Dose: 100 mls/hr Ibuprofen (Motrin Tab) 400 mg PO Q6H PRN PRN Reason: Fever >100.4 F Insulin Human Regular (Humulin R Low) 0 units SC ACHS [facility] PRN Reason: Protocol Last Admin: 04/12/17 08:26 Dose: 1 units Metformin HCl (Glucophage) 850 mg PO TID [facility] Last Admin: 04/12/17 09:13 Dose: 850 mg Metoprolol Tartrate (Lopressor) 25 mg PO BID [facility] Last Admin: 04/12/17 09:13 Dose: 25 mg Non-Formulary Medication (Acetaminophen [Tylenol Extra Strength]) 500 mg PO BID PRN PRN Reason: Pain, moderate (4-7) Oxycodone HCl (Oxycontin Extended Release Tab) 20 mg PO Q12 [facility] Last Admin: 04/12/17 09:12 Dose: 20 mg Oxycodone/Acetaminophen (Percocet 5/325 Mg Tab) 1 tab PO Q4H PRN PRN Reason: Pain, Mild (1-3) Stop: 04/14/17 15:15 Pantoprazole Sodium (Protonix Ec Tab) 40 mg PO 0600 [facility] Last Admin: 04/12/17 07:52 Dose: 40 mg Sennosides (Senokot Tab) 8.6 mg PO BID [facility] Last Admin: 04/12/17 09:13 Dose: 8.6 mg Tamsulosin HCl (Flomax) 0.4 mg PO QPM [facility] Last Admin: 04/11/17 18:20 Dose: 0.4 mg - Labs Labs: 04/12/17 08:00 04/12/17 08:00 PT 10.7 Seconds (9.9-11.8) 04/10/17 06:40 INR 0.99 (0.93-1.08) 04/10/17 06:40 APTT 25.7 Seconds (23.7-30.8) 04/10/17 06:40 - Constitutional Appears: No Acute Distress - Head Exam Head Exam: ATRAUMATIC, NORMAL INSPECTION, NORMOCEPHALIC - Eye Exam Eye Exam: EOMI, Normal appearance, PERRL Pupil Exam: NORMAL ACCOMODATION, PERRL - ENT Exam ENT Exam: Mucous Membranes Moist, Normal Exam - Respiratory Exam Respiratory Exam: Decreased Breath Sounds, Clear to Ausculation Bilateral, NORMAL BREATHING PATTERN - Cardiovascular Exam Cardiovascular Exam: REGULAR RHYTHM, +S1, +S2. absent: Murmur - GI/Abdominal Exam GI & Abdominal Exam: Soft, Normal Bowel Sounds. absent: Tenderness - Extremities Exam Extremities Exam: Full ROM, Normal Capillary Refill, Normal Inspection. absent : Joint Swelling, Pedal Edema - Neurological Exam Neurological Exam: Alert, Awake, CN II-XII Intact, Normal Gait, Oriented x3 - Psychiatric Exam Psychiatric exam: Normal Affect, Normal Mood - Skin Skin Exam: Dry, Intact, Normal Color, Warm Assessment and Plan - Assessment and Plan (Free Text) Assessment: 56 M with PMHx of HTN, HLD, DM2, BPH, and disc disease who presented for post- operative observation of L3-4, 4-5 decompression. Pt experienced fever overnight. Septic workup ordered, CXR demonstrated patchy infiltrates. Abx started rocephin azithromycin 1. S/P L3-4, 4-5 decompression -IVF: LR at 100cc/hr -Pain Control: started Oxycontin 20mg PO Q12H, continue Dilaudid 0.5mg IVP Q2H PRN and Tylenol 650mg Q6H PRN -UOP: Mosher Catheter in place with approximately 450ml of yellow urine, will remove 04/11 if patient passes flatus, per neurosurgery -Diet: Hearth Healthy Carbohydrate Modified, may eat as tolerated -continue ferrous sulfate and ascorbic acid -wound care team consulted, appreciate all assistance in this patient's care -continue PT/OT, who recommends discharge to home (TCU if needed), with patient expressing he wants to go home upon discharge -will follow up neurosurgical recommendations 2. Transaminitis -AST/ALT: 102/63 -hepatitis panel negative -hepatic and gallbladder ultrasound pending 3. HTN -continue Lopressor -Hydralazine 10mg IVP Q6H PRN for SBP over 170mmHG -continue to monitor 4. HLD -continue lipitor 5. DM2 -increased Metformin to 850mg TID -A1C pending -continue SSI-Low ACHS -fingersticks ACHS -Carbohydrate Consistent Diet-Moderate 6. BPH -continue flomax -mosher catheter in place and draining well 7. GI/DVT Prophylaxis -Protonix/scd's Patient seen and case discussed with attending <Holly Estrada B - Last Filed: 04/12/17 13:08> Objective - Vital Signs/Intake and Output Vital Signs (last 24 hours): Temp Pulse Resp BP Pulse Ox 99.8 F H 120 H 20 145/92 H 95 04/12/17 08:45 04/12/17 08:45 04/12/17 08:45 04/12/17 08:45 04/11/17 16:22 Intake and Output: 04/12/17 04/12/17 06:59 18:59 Output Total 425 Balance -425 - Medications Medications: Current Medications Acetaminophen (Tylenol 325mg Tab) 650 mg PO Q6H PRN PRN Reason: Fever >100.4 F Last Admin: 04/11/17 21:05 Dose: 650 mg Ascorbic Acid (Vitamin C 500 Mg Tab) 500 mg PO DAILY [facility] Last Admin: 04/12/17 09:13 Dose: 500 mg Atorvastatin Calcium (Lipitor) 10 mg PO QPM [facility] Last Admin: 04/11/17 18:20 Dose: 10 mg Azithromycin (Zithromax) 500 mg PO DAILY [facility] PRN Reason: Protocol Last Admin: 04/12/17 09:13 Dose: 500 mg Bacitracin (Bacitracin) 0 gm TOP DAILY [facility] Last Admin: 04/12/17 09:14 Dose: 1 u Ferrous Sulfate (Feosol) 324 mg PO TID [facility] Last Admin: 04/12/17 09:13 Dose: 324 mg Hydralazine HCl (Apresoline) 10 mg IVP Q6 PRN PRN Reason: Systolic Blood Pressure Last Admin: 04/10/17 21:16 Dose: 10 mg Hydromorphone HCl (Dilaudid) 0.5 mg IVP Q2 PRN PRN Reason: Pain, severe (8-10) Last Admin: 04/12/17 07:51 Dose: 0.5 mg Lactated Ringer's (Lactated Ringer's) 1,000 mls @ 100 drops/hr IV .Q24H [facility] Last Admin: 04/11/17 16:55 Dose: 100 drops/hr Ceftriaxone Sodium (Rocephin 1 Gram Ivpb) 1 gm in 100 mls @ 100 mls/hr IVPB DAILY [facility] PRN Reason: Protocol Last Admin: 04/12/17 09:10 Dose: 100 mls/hr Ibuprofen (Motrin Tab) 400 mg PO Q6H PRN PRN Reason: Fever >100.4 F Insulin Human Regular (Humulin R Low) 0 units SC ACHS [facility] PRN Reason: Protocol Last Admin: 04/12/17 11:50 Dose: 2 units Metformin HCl (Glucophage) 850 mg PO TID [facility] Last Admin: 04/12/17 09:13 Dose: 850 mg Metoprolol Tartrate (Lopressor) 25 mg PO BID [facility] Last Admin: 04/12/17 09:13 Dose: 25 mg Non-Formulary Medication (Acetaminophen [Tylenol Extra Strength]) 500 mg PO BID PRN PRN Reason: Pain, moderate (4-7) Oxycodone HCl (Oxycontin Extended Release Tab) 20 mg PO Q12 [facility] Last Admin: 04/12/17 09:12 Dose: 20 mg Oxycodone/Acetaminophen (Percocet 5/325 Mg Tab) 1 tab PO Q4H PRN PRN Reason: Pain, Mild (1-3) Stop: 04/14/17 15:15 Last Admin: 04/12/17 12:16 Dose: 1 tab Pantoprazole Sodium (Protonix Ec Tab) 40 mg PO 0600 [facility] Last Admin: 04/12/17 07:52 Dose: 40 mg Sennosides (Senokot Tab) 8.6 mg PO BID [facility] Last Admin: 04/12/17 09:13 Dose: 8.6 mg Tamsulosin HCl (Flomax) 0.4 mg PO QPM [facility] Last Admin: 04/11/17 18:20 Dose: 0.4 mg - Labs Labs: 04/12/17 08:00 04/12/17 08:00 PT 10.7 Seconds (9.9-11.8) 04/10/17 06:40 INR 0.99 (0.93-1.08) 04/10/17 06:40 APTT 25.7 Seconds (23.7-30.8) 04/10/17 06:40 Attending/Attestation - Attestation I have personally seen and examined this patient.: Yes I have fully participated in the care of the patient.: Yes I have reviewed all pertinent clinical information, including history, physical exam and plan: Yes Notes (Text): I have seen and examined the patient at bedside. Agree with the above note with the following additions/ exceptions: Briefly this is 56 year old male with history of HTN, HLD, DM2, BPH, and lumbar radiculopathy who underwent L3-4, 4-5 decompression 2 day ago by neurosurgeon. His pain is being managed by NS. Last night, patient had a fever. CXR revealed bibasilar infiltrates. Ordered blood culture, urine culture, procalcitonin and CXR. Patient is on recliner. Complains of pain in the neck, lower back radiating in the left lower extremity. Patient is refusing for mosher to be removed as he is in pain and is not able to move. Continue mosher catheter for now. Blood sugar has improved. Will follow up on hba1c. Continue ISS, metformin 850 TID and lopressor. Encourage to use incentive spirometer. Continue flomax. Upon discharge patient will follow up with PMD of choice. Dr Holly Estrada
[2017-04-12] MEDS: Oxycodone/Acetaminophen 5/325 mg Tab PO PRN (12:16)
[2017-04-12] MEDS: Lactated Ringer's 1,000 ML IV SCH ×2 (13:44→17:33)
--- NOTE | 2017-04-12 16:10 | CP.PCM.PN ---
Subjective - Date & Time of Evaluation Date of Evaluation: 04/12/17 Time of Evaluation: 16:06 - Subjective Subjective: SPINE - POD #2 Pt resting in bed. Still c/o back and neck pain. No flatus yet. Would not get OOB w nursing earlier. Fever overnight (102), 99 this morning. VSS. Neuro remains intact. Incision clean and dry as per nursing (dressing change). Plan: Emphasized need to pt to move (sister present and translated). Made sure pt using spirometry properly. Very common for elevated temp first 3-5 days after fusion procedures. Objective - Vital Signs/Intake and Output Vital Signs (last 24 hours): Temp Pulse Resp BP Pulse Ox 99.8 F H 120 H 20 145/92 H 95 04/12/17 08:45 04/12/17 08:45 04/12/17 08:45 04/12/17 08:45 04/11/17 16:22 Intake and Output: 04/12/17 04/12/17 06:59 18:59 Intake Total 480 Output Total 425 1200 Balance -425 -720 - Medications Medications: Current Medications Acetaminophen (Tylenol 325mg Tab) 650 mg PO Q6H PRN PRN Reason: Fever >100.4 F Last Admin: 04/11/17 21:05 Dose: 650 mg Ascorbic Acid (Vitamin C 500 Mg Tab) 500 mg PO DAILY [facility] Last Admin: 04/12/17 09:13 Dose: 500 mg Atorvastatin Calcium (Lipitor) 10 mg PO QPM [facility] Last Admin: 04/11/17 18:20 Dose: 10 mg Azithromycin (Zithromax) 500 mg PO DAILY [facility] PRN Reason: Protocol Last Admin: 04/12/17 09:13 Dose: 500 mg Bacitracin (Bacitracin) 0 gm TOP DAILY [facility] Last Admin: 04/12/17 09:14 Dose: 1 u Ferrous Sulfate (Feosol) 324 mg PO TID [facility] Last Admin: 04/12/17 13:43 Dose: 324 mg Hydralazine HCl (Apresoline) 10 mg IVP Q6 PRN PRN Reason: Systolic Blood Pressure Last Admin: 04/10/17 21:16 Dose: 10 mg Hydromorphone HCl (Dilaudid) 0.5 mg IVP Q2 PRN PRN Reason: Pain, severe (8-10) Last Admin: 04/12/17 07:51 Dose: 0.5 mg Lactated Ringer's (Lactated Ringer's) 1,000 mls @ 100 drops/hr IV .Q24H [facility] Last Admin: 04/12/17 13:44 Dose: 100 drops/hr Ceftriaxone Sodium (Rocephin 1 Gram Ivpb) 1 gm in 100 mls @ 100 mls/hr IVPB DAILY [facility] PRN Reason: Protocol Last Admin: 04/12/17 09:10 Dose: 100 mls/hr Ibuprofen (Motrin Tab) 400 mg PO Q6H PRN PRN Reason: Fever >100.4 F Insulin Human Regular (Humulin R Low) 0 units SC ACHS [facility] PRN Reason: Protocol Last Admin: 04/12/17 11:50 Dose: 2 units Metformin HCl (Glucophage) 850 mg PO TID [facility] Last Admin: 04/12/17 13:43 Dose: 850 mg Metoprolol Tartrate (Lopressor) 25 mg PO BID [facility] Last Admin: 04/12/17 09:13 Dose: 25 mg Non-Formulary Medication (Acetaminophen [Tylenol Extra Strength]) 500 mg PO BID PRN PRN Reason: Pain, moderate (4-7) Oxycodone HCl (Oxycontin Extended Release Tab) 20 mg PO Q12 [facility] Last Admin: 04/12/17 09:12 Dose: 20 mg Oxycodone/Acetaminophen (Percocet 5/325 Mg Tab) 1 tab PO Q4H PRN PRN Reason: Pain, Mild (1-3) Stop: 04/14/17 15:15 Last Admin: 04/12/17 12:16 Dose: 1 tab Pantoprazole Sodium (Protonix Ec Tab) 40 mg PO 0600 [facility] Last Admin: 04/12/17 07:52 Dose: 40 mg Sennosides (Senokot Tab) 8.6 mg PO BID [facility] Last Admin: 04/12/17 09:13 Dose: 8.6 mg Tamsulosin HCl (Flomax) 0.4 mg PO QPM [facility] Last Admin: 04/11/17 18:20 Dose: 0.4 mg - Labs Labs: 04/12/17 08:00 04/12/17 08:00 PT 10.7 Seconds (9.9-11.8) 04/10/17 06:40 INR 0.99 (0.93-1.08) 04/10/17 06:40 APTT 25.7 Seconds (23.7-30.8) 04/10/17 06:40
--- NOTE | 2017-04-12 20:16 | CP.PCM.CON ---
History of Present Illness - History of Present Illness History of Present Illness: Infectious Disease Consultation: April 12, 2017 56 yo male with spinal L3-4 and L4-5 compression. Taken by neurosurgeon for decompression yesterday. The patient had fevers the day later. He does not report any new issues. Patient's back pain started in 2013 while lifting a heavy object. The patient can have post surgical fevers for up to 3 days. He is uncomfortable s/p surgery. PMHx: HTN, HLD, DM2, BPH, and disc disease PSHx: reconstructive right ankle surgeries x 2 Allergies: NKDA Social Hx: No tobacco, EtOH, or illicit drug use Active Medications Acetaminophen (Tylenol 325mg Tab) 650 mg PO Q6H PRN PRN Reason: Fever >100.4 F Last Admin: 04/11/17 21:05 Dose: 650 mg Ascorbic Acid (Vitamin C 500 Mg Tab) 500 mg PO DAILY [facility] Last Admin: 04/12/17 09:13 Dose: 500 mg Atorvastatin Calcium (Lipitor) 10 mg PO QPM [facility] Last Admin: 04/12/17 18:12 Dose: 10 mg Azithromycin (Zithromax) 500 mg PO DAILY [facility] PRN Reason: Protocol Last Admin: 04/12/17 09:13 Dose: 500 mg Bacitracin (Bacitracin) 0 gm TOP DAILY [facility] Last Admin: 04/12/17 09:14 Dose: 1 u Ferrous Sulfate (Feosol) 324 mg PO TID [facility] Last Admin: 04/12/17 17:32 Dose: 324 mg Hydralazine HCl (Apresoline) 10 mg IVP Q6 PRN PRN Reason: Systolic Blood Pressure Last Admin: 04/10/17 21:16 Dose: 10 mg Hydromorphone HCl (Dilaudid) 0.5 mg IVP Q2 PRN PRN Reason: Pain, severe (8-10) Last Admin: 04/12/17 07:51 Dose: 0.5 mg Lactated Ringer's (Lactated Ringer's) 1,000 mls @ 100 drops/hr IV .Q24H [facility] Last Admin: 04/12/17 17:33 Dose: Not Given Ceftriaxone Sodium (Rocephin 1 Gram Ivpb) 1 gm in 100 mls @ 100 mls/hr IVPB DAILY [facility] PRN Reason: Protocol Last Admin: 04/12/17 09:10 Dose: 100 mls/hr Ibuprofen (Motrin Tab) 400 mg PO Q6H PRN PRN Reason: Fever >100.4 F Insulin Human Regular (Humulin R Low) 0 units SC ACHS [facility] PRN Reason: Protocol Last Admin: 04/12/17 17:29 Dose: 1 units Metformin HCl (Glucophage) 850 mg PO TID [facility] Last Admin: 04/12/17 18:12 Dose: 850 mg Metoprolol Tartrate (Lopressor) 25 mg PO BID [facility] Last Admin: 04/12/17 17:32 Dose: 25 mg Non-Formulary Medication (Acetaminophen [Tylenol Extra Strength]) 500 mg PO BID PRN PRN Reason: Pain, moderate (4-7) Oxycodone HCl (Oxycontin Extended Release Tab) 20 mg PO Q12 [facility] Last Admin: 04/12/17 09:12 Dose: 20 mg Oxycodone/Acetaminophen (Percocet 5/325 Mg Tab) 1 tab PO Q4H PRN PRN Reason: Pain, Mild (1-3) Stop: 04/14/17 15:15 Last Admin: 04/12/17 12:16 Dose: 1 tab Pantoprazole Sodium (Protonix Ec Tab) 40 mg PO 0600 [facility] Last Admin: 04/12/17 07:52 Dose: 40 mg Sennosides (Senokot Tab) 8.6 mg PO BID [facility] Last Admin: 04/12/17 17:32 Dose: 8.6 mg Tamsulosin HCl (Flomax) 0.4 mg PO QPM [facility] Last Admin: 04/12/17 17:32 Dose: 0.4 mg Family Hx: DM in multiple family members. ROS: fevers. No chills, nausea, vomiting, diarrhea, headaches, dizziness, chest pain , abdominal pain, melena, hematuria, hematemesis, hematochezia, depression, anxiety Past Patient History - Past Social History Smoking Status: Never Smoked - CARDIAC Hx Cardiac Disorders: Yes Hx Hypercholesterolemia: Yes Hx Hypertension: Yes - PULMONARY Hx Respiratory Disorders: No - NEUROLOGICAL Hx Neurological Disorder: No - HEENT Hx HEENT Problems: No - RENAL Hx Chronic Kidney Disease: No - ENDOCRINE/METABOLIC Hx Diabetes Mellitus Type 2: Yes - HEMATOLOGICAL/ONCOLOGICAL Hx Blood Disorders: No - INTEGUMENTARY Hx Dermatological Problems: No - MUSCULOSKELETAL/RHEUMATOLOGICAL Hx Musculoskeletal Disorders: Yes Hx Falls: Yes Hx Fractures: Yes (RIGHT ANKLE SX WITH 2 HARDWARE NOW ONE SCREW.LUMBAR DISC DERANGEMENT.) - GASTROINTESTINAL Hx Gastrointestinal Disorders: Yes (CONSTIPATION) - GENITOURINARY/GYNECOLOGICAL Hx Genitourinary Disorders: Yes Hx Prostate Problems: Yes (BPH) - PSYCHIATRIC Hx Psychophysiologic Disorder: No Hx Emotional Abuse: No Hx Physical Abuse: No Hx Substance Use: No - SURGICAL HISTORY Hx Surgeries: Yes (LUMBAR DISC DERANGEMENT PL3-21 DECOMPRESSION,L4-S1 FIXATION AND FUSION.04/03) Other/Comment: RIGHT ANKLE SURGERY WITH HARDWARE X 2 NOW HAS ONE SCREW. - ANESTHESIA Hx Anesthesia Reactions: No Hx Malignant Hyperthermia: No Meds Allergies/Adverse Reactions: Allergies Allergy/AdvReac Type Severity Reaction Status Date / Time No Known Allergies Allergy Verified 04/10/17 14:48 - Medications Medications: Current Medications Acetaminophen (Tylenol 325mg Tab) 650 mg PO Q6H PRN PRN Reason: Fever >100.4 F Last Admin: 04/11/17 21:05 Dose: 650 mg Ascorbic Acid (Vitamin C 500 Mg Tab) 500 mg PO DAILY [facility] Last Admin: 04/12/17 09:13 Dose: 500 mg Atorvastatin Calcium (Lipitor) 10 mg PO QPM [facility] Last Admin: 04/12/17 18:12 Dose: 10 mg Azithromycin (Zithromax) 500 mg PO DAILY [facility] PRN Reason: Protocol Last Admin: 04/12/17 09:13 Dose: 500 mg Bacitracin (Bacitracin) 0 gm TOP DAILY [facility] Last Admin: 04/12/17 09:14 Dose: 1 u Ferrous Sulfate (Feosol) 324 mg PO TID [facility] Last Admin: 04/12/17 17:32 Dose: 324 mg Hydralazine HCl (Apresoline) 10 mg IVP Q6 PRN PRN Reason: Systolic Blood Pressure Last Admin: 04/10/17 21:16 Dose: 10 mg Hydromorphone HCl (Dilaudid) 0.5 mg IVP Q2 PRN PRN Reason: Pain, severe (8-10) Last Admin: 04/12/17 07:51 Dose: 0.5 mg Lactated Ringer's (Lactated Ringer's) 1,000 mls @ 100 drops/hr IV .Q24H [facility] Last Admin: 04/12/17 17:33 Dose: Not Given Ceftriaxone Sodium (Rocephin 1 Gram Ivpb) 1 gm in 100 mls @ 100 mls/hr IVPB DAILY [facility] PRN Reason: Protocol Last Admin: 04/12/17 09:10 Dose: 100 mls/hr Ibuprofen (Motrin Tab) 400 mg PO Q6H PRN PRN Reason: Fever >100.4 F Insulin Human Regular (Humulin R Low) 0 units SC ACHS [facility] PRN Reason: Protocol Last Admin: 04/12/17 17:29 Dose: 1 units Metformin HCl (Glucophage) 850 mg PO TID [facility] Last Admin: 04/12/17 18:12 Dose: 850 mg Metoprolol Tartrate (Lopressor) 25 mg PO BID [facility] Last Admin: 04/12/17 17:32 Dose: 25 mg Non-Formulary Medication (Acetaminophen [Tylenol Extra Strength]) 500 mg PO BID PRN PRN Reason: Pain, moderate (4-7) Oxycodone HCl (Oxycontin Extended Release Tab) 20 mg PO Q12 [facility] Last Admin: 04/12/17 09:12 Dose: 20 mg Oxycodone/Acetaminophen (Percocet 5/325 Mg Tab) 1 tab PO Q4H PRN PRN Reason: Pain, Mild (1-3) Stop: 04/14/17 15:15 Last Admin: 04/12/17 12:16 Dose: 1 tab Pantoprazole Sodium (Protonix Ec Tab) 40 mg PO 0600 [facility] Last Admin: 04/12/17 07:52 Dose: 40 mg Sennosides (Senokot Tab) 8.6 mg PO BID [facility] Last Admin: 04/12/17 17:32 Dose: 8.6 mg Tamsulosin HCl (Flomax) 0.4 mg PO QPM [facility] Last Admin: 04/12/17 17:32 Dose: 0.4 mg Physical Exam - Constitutional Appears: Non-toxic, No Acute Distress, Chronically Ill - Head Exam Head Exam: ATRAUMATIC, NORMOCEPHALIC - Eye Exam Eye Exam: EOMI, PERRL Pupil Exam: NORMAL ACCOMODATION, PERRL - ENT Exam ENT Exam: Mucous Membranes Moist, Normal External Ear Exam, TM's Normal Bilaterally - Neck Exam Neck exam: Positive for: Full Rom, Normal Inspection - Respiratory Exam Respiratory Exam: Decreased Breath Sounds, NORMAL BREATHING PATTERN. absent: Rales, Rhonchi, Wheezes - Cardiovascular Exam Cardiovascular Exam: REGULAR RHYTHM, RRR, +S1, +S2 - GI/Abdominal Exam GI & Abdominal Exam: Normal Bowel Sounds, Soft. absent: Distended, Tenderness - Extremities Exam Extremities exam: Positive for: full ROM, normal inspection - Neurological Exam Neurological exam: Alert, CN II-XII Intact, Oriented x3 - Psychiatric Exam Psychiatric exam: Normal Affect, Normal Mood - Skin Skin Exam: Intact, Normal Color Results - Vital Signs Recent Vital Signs: Last Vital Signs Temp 99.8 F H 04/12/17 08:45 Pulse 120 H 04/12/17 08:45 Resp 20 04/12/17 08:45 BP 134/93 H 04/12/17 17:32 Pulse Ox 95 04/11/17 16:22 - Labs Result Diagrams: 04/12/17 08:00 04/12/17 08:00 Labs: Laboratory Results - last 24 hr 04/11/17 04/12/17 04/12/17 21:20 07:16 07:34 WBC RBC Hgb Hct MCV MCH MCHC RDW Plt Count MPV Gran % Lymph % (Auto) [place] % (Auto) Eos % (Auto) Baso % (Auto) Gran # Lymph # [place] # Eos # Baso # Sodium Potassium Chloride Carbon Dioxide Anion Gap BUN Creatinine Est GFR ( Amer) Est GFR (Non-Af Amer) POC Glucose (mg/dL) 161 H 191 H Random Glucose Calcium Phosphorus Magnesium Iron TIBC % Saturation Ferritin Total Bilirubin AST ALT Alkaline Phosphatase C-React Prot High Sens Total Protein Albumin Globulin Albumin/Globulin Ratio Procalcitonin 1.33 H 04/12/17 04/12/17 04/12/17 07:35 07:41 08:00 WBC 13.5 H D RBC 2.96 L Hgb 8.6 L Hct 25.6 L MCV 86.5 MCH 29.1 MCHC 33.6 RDW 12.5 Plt Count 184 MPV 10.3 Gran % 76.8 H Lymph % (Auto) 15.0 L [place] % (Auto) 7.7 H Eos % (Auto) 0.4 L Baso % (Auto) 0.1 Gran # 10.36 H Lymph # 2.0 [place] # 1.0 H Eos # 0.1 Baso # 0.02 Sodium Potassium Chloride Carbon Dioxide Anion Gap BUN Creatinine Est GFR ( Amer) Est GFR (Non-Af Amer) POC Glucose (mg/dL) Random Glucose Calcium Phosphorus 3.1 Magnesium 1.0 L* Iron TIBC % Saturation Ferritin Total Bilirubin AST ALT Alkaline Phosphatase C-React Prot High Sens > 15.00 H Total Protein Albumin Globulin Albumin/Globulin Ratio Procalcitonin 04/12/17 04/12/17 04/12/17 08:00 10:30 10:30 WBC RBC Hgb Hct MCV MCH MCHC RDW Plt Count MPV Gran % Lymph % (Auto) [place] % (Auto) Eos % (Auto) Baso % (Auto) Gran # Lymph # [place] # Eos # Baso # Sodium 139 Potassium 3.7 Chloride 103 Carbon Dioxide 27 Anion Gap 13 BUN 9 Creatinine 0.9 Est GFR ( Amer) > 60 Est GFR (Non-Af Amer) > 60 POC Glucose (mg/dL) Random Glucose 173 H Calcium 8.1 L Phosphorus Magnesium Iron 10 L TIBC 217 L % Saturation 5 L Ferritin 255.0 Total Bilirubin 1.2 AST 84 H ALT 55 Alkaline Phosphatase 66 C-React Prot High Sens Total Protein 5.8 Albumin 3.0 Globulin 2.8 Albumin/Globulin Ratio 1.1 Procalcitonin 04/12/17 04/12/17 11:24 16:12 WBC RBC Hgb Hct MCV MCH MCHC RDW Plt Count MPV Gran % Lymph % (Auto) [place] % (Auto) Eos % (Auto) Baso % (Auto) Gran # Lymph # [place] # Eos # Baso # Sodium Potassium Chloride Carbon Dioxide Anion Gap BUN Creatinine Est GFR ( Amer) Est GFR (Non-Af Amer) POC Glucose (mg/dL) 187 H 167 H Random Glucose Calcium Phosphorus Magnesium Iron TIBC % Saturation Ferritin Total Bilirubin AST ALT Alkaline Phosphatase C-React Prot High Sens Total Protein Albumin Globulin Albumin/Globulin Ratio Procalcitonin Assessment & Plan - Assessment and Plan (Free Text) Assessment: 56 yo male with decompression of L3-4 and L4-5 one day ago. Fever up to 102.0 F postsurgically. Noted on Rocephin and Azithromycin. Fevers are not uncommon in the first 24-72 post surgery. Supportive care. Would not add additional antibiotics at this time. Supportive care. Extensive medical history as listed above. Thank you for allowing me to participate in the care of the patient, we will follow with you.
[2017-04-13] MEDS: HYDROmorphone 0.5 mg/0.5 ml ISec IVP PRN (05:03)
[2017-04-13 07:50] LABS: BASO # 0.02 K/mm3 (0.0-2.0); BASO % 0.2 % (0.0-3.0); EOS # 0.1 (0.0-0.7); EOS % 1.2 % (1.5-5.0); GRAN # 8.68 (1.4-6.5); GRAN % 81.6 % (50.0-68.0); LYMPH # 1.1 (1.2-3.4); LYMPH % 10.2 % (22.0-35.0); MEAN CELL VOLUME 85.6 fl (80.0-105.0); MEAN CORPUSCULAR HEMOGLOBIN 28.8 pg (25.0-35.0); MEAN CORPUSCULAR HGB CONC 33.6 g/dl (31.0-37.0); MEAN PLATELET VOLUME 10.3 fl (7.0-11.0); MONO # 0.7 (0.1-0.6); MONO % 6.8 % (1.0-6.0); RED CELL DISTRIBUTION WIDTH 12.5 % (11.5-14.5); WHITE BLOOD COUNT 10.6 10^3/ul (4.5-11.0)
[2017-04-13 08:00] LABS: HEMATOCRIT 23.2 % (42.0-52.0)
[2017-04-13 08:03] LABS: ALB/GLOB RATIO 1.1 (1.1-1.8); ALKALINE PHOSPHATASE 79 U/L (38-133); ALT/SGPT 59 U/L (7-56); AST/SGOT 80 U/L (15-59); BLOOD UREA NITROGEN 12 mg/dL (7-21); CALCIUM 8.4 mg/dL (8.4-10.5); CARBON DIOXIDE 26 mmol/L (21-33); CHLORIDE 101 mmol/L (98-107); GFR AFRICAN-AMERICAN > 60; GLUCOSE,RANDOM 189 mg/dL (70-110); POTASSIUM 3.6 mmol/L (3.6-5.0); SODIUM 137 mmol/L (132-148); TOTAL PROTEIN 5.9 g/dL (5.8-8.3)
[2017-04-13] MEDS: Insulin Reg-LOW-Coverage SC SCH ×4 (08:27→22:10)
[2017-04-13] MEDS: oxyCODONE 20 mg ER Tab (oxyCONTIN) PO SCH ×2 (09:08→22:31)
[2017-04-13] MEDS: cefTRIAXone 1 gm 1 GM/100 ML BAG IVPB SCH (09:09)
[2017-04-13] MEDS: Bacitracin Ointment 30 GM TUBE TOP SCH (09:09)
[2017-04-13] MEDS: POLYETHYLENE GLYCOL 3350 17 GM/Dose PACKET PO PRN (09:15)
--- NOTE | 2017-04-13 11:48 | CP.PCM.PN ---
Subjective - Date & Time of Evaluation Date of Evaluation: 04/13/17 Time of Evaluation: 11:46 - Subjective Subjective: POD 3 much better - less pain sitting in chair min ambulation wound c and d 5/5 throughout p cont PT mobilization dc planning Objective - Vital Signs/Intake and Output Vital Signs (last 24 hours): Temp Pulse Resp BP Pulse Ox 99 F 117 H 20 131/65 95 04/13/17 07:27 04/13/17 09:08 04/13/17 07:27 04/13/17 09:08 04/13/17 07:27 Intake and Output: 04/13/17 04/13/17 06:59 18:59 Intake Total 3660 Output Total 2350 Balance 1310 - Medications Medications: Current Medications Acetaminophen (Tylenol 325mg Tab) 650 mg PO Q6H PRN PRN Reason: Fever >100.4 F Last Admin: 04/11/17 21:05 Dose: 650 mg Ascorbic Acid (Vitamin C 500 Mg Tab) 500 mg PO DAILY [facility] Last Admin: 04/13/17 09:08 Dose: 500 mg Atorvastatin Calcium (Lipitor) 10 mg PO QPM [facility] Last Admin: 04/12/17 18:12 Dose: 10 mg Azithromycin (Zithromax) 500 mg PO DAILY [facility] PRN Reason: Protocol Last Admin: 04/13/17 09:08 Dose: 500 mg Bacitracin (Bacitracin) 0 gm TOP DAILY [facility] Last Admin: 04/13/17 09:09 Dose: 1 u Ferrous Sulfate (Feosol) 324 mg PO TID [facility] Last Admin: 04/12/17 17:32 Dose: 324 mg Hydralazine HCl (Apresoline) 10 mg IVP Q6 PRN PRN Reason: Systolic Blood Pressure Last Admin: 04/10/17 21:16 Dose: 10 mg Hydromorphone HCl (Dilaudid) 0.5 mg IVP Q2 PRN PRN Reason: Pain, severe (8-10) Last Admin: 04/13/17 05:03 Dose: 0.5 mg Lactated Ringer's (Lactated Ringer's) 1,000 mls @ 100 drops/hr IV .Q24H [facility] Last Admin: 04/12/17 17:33 Dose: Not Given Ceftriaxone Sodium (Rocephin 1 Gram Ivpb) 1 gm in 100 mls @ 100 mls/hr IVPB DAILY [facility] PRN Reason: Protocol Last Admin: 04/13/17 09:09 Dose: 100 mls/hr Ibuprofen (Motrin Tab) 400 mg PO Q6H PRN PRN Reason: Fever >100.4 F Insulin Human Regular (Humulin R Low) 0 units SC ACHS [facility] PRN Reason: Protocol Last Admin: 04/13/17 08:27 Dose: 2 units Metformin HCl (Glucophage) 850 mg PO TID [facility] Last Admin: 04/13/17 09:09 Dose: 850 mg Metoprolol Tartrate (Lopressor) 25 mg PO BID [facility] Last Admin: 04/13/17 09:08 Dose: 25 mg Non-Formulary Medication (Acetaminophen [Tylenol Extra Strength]) 500 mg PO BID PRN PRN Reason: Pain, moderate (4-7) Oxycodone HCl (Oxycontin Extended Release Tab) 20 mg PO Q12 [facility] Last Admin: 04/13/17 09:08 Dose: 20 mg Oxycodone/Acetaminophen (Percocet 5/325 Mg Tab) 1 tab PO Q4H PRN PRN Reason: Pain, Mild (1-3) Stop: 04/14/17 15:15 Last Admin: 04/12/17 12:16 Dose: 1 tab Pantoprazole Sodium (Protonix Ec Tab) 40 mg PO 0600 [facility] Last Admin: 04/12/17 07:52 Dose: 40 mg Polyethylene Glycol (Miralax) 17 gm PO BID PRN PRN Reason: Constipation Last Admin: 04/13/17 09:15 Dose: 17 gm Sennosides (Senokot Tab) 8.6 mg PO BID [facility] Last Admin: 04/13/17 09:09 Dose: 8.6 mg Tamsulosin HCl (Flomax) 0.4 mg PO QPM [facility] Last Admin: 04/12/17 17:32 Dose: 0.4 mg - Labs Labs: 04/13/17 07:00 04/13/17 07:00 PT 10.7 Seconds (9.9-11.8) 04/10/17 06:40 INR 0.99 (0.93-1.08) 04/10/17 06:40 APTT 25.7 Seconds (23.7-30.8) 04/10/17 06:40
[2017-04-13] MEDS: Oxycodone/Acetaminophen 5/325 mg Tab PO PRN ×2 (12:24→17:11)
[2017-04-13 15:38] LABS: MEAN CELL VOLUME 86.1 fl (80.0-105.0); MEAN CORPUSCULAR HEMOGLOBIN 28.9 pg (25.0-35.0); MEAN CORPUSCULAR HGB CONC 33.6 g/dl (31.0-37.0); RED CELL DISTRIBUTION WIDTH 12.5 % (11.5-14.5)
[2017-04-13] MEDS: Lactated Ringer's 1,000 ML IV SCH (15:43)
[2017-04-13 15:49] LABS: HEMATOCRIT 23.5 % (42.0-52.0)
--- NOTE | 2017-04-13 17:53 | CP.PCM.PN ---
Subjective - Date & Time of Evaluation Date of Evaluation: 04/13/17 Time of Evaluation: 16:30 - Subjective Subjective: Infectious Disease Follow Up: April 13, 2017 56 yo male with spinal L3-4 and L4-5 compression. Taken by neurosurgeon for decompression yesterday. The patient had fevers the day later. He does not report any new issues. Patient's back pain started in 2013 while lifting a heavy object. The patient can have post surgical fevers for up to 3 days. He is uncomfortable s/p surgery. Afebrile today. Patient feeling better. Objective - Vital Signs/Intake and Output Vital Signs (last 24 hours): Temp Pulse Resp BP Pulse Ox 99 F 117 H 20 131/65 95 04/13/17 07:27 04/13/17 09:08 04/13/17 07:27 04/13/17 09:08 04/13/17 07:27 Intake and Output: 04/13/17 04/13/17 06:59 18:59 Intake Total 3660 600 Output Total 2350 Balance 1310 600 - Medications Medications: Current Medications Acetaminophen (Tylenol 325mg Tab) 650 mg PO Q6H PRN PRN Reason: Fever >100.4 F Last Admin: 04/11/17 21:05 Dose: 650 mg Ascorbic Acid (Vitamin C 500 Mg Tab) 500 mg PO DAILY [facility] Last Admin: 04/13/17 09:08 Dose: 500 mg Atorvastatin Calcium (Lipitor) 10 mg PO QPM [facility] Last Admin: 04/13/17 17:06 Dose: 10 mg Azithromycin (Zithromax) 500 mg PO DAILY [facility] PRN Reason: Protocol Last Admin: 04/13/17 09:08 Dose: 500 mg Bacitracin (Bacitracin) 0 gm TOP DAILY [facility] Last Admin: 04/13/17 09:09 Dose: 1 u Ferrous Sulfate (Feosol) 324 mg PO TID [facility] Last Admin: 04/12/17 17:32 Dose: 324 mg Hydralazine HCl (Apresoline) 10 mg IVP Q6 PRN PRN Reason: Systolic Blood Pressure Last Admin: 04/10/17 21:16 Dose: 10 mg Hydromorphone HCl (Dilaudid) 0.5 mg IVP Q2 PRN PRN Reason: Pain, severe (8-10) Last Admin: 04/13/17 05:03 Dose: 0.5 mg Lactated Ringer's (Lactated Ringer's) 1,000 mls @ 100 drops/hr IV .Q24H [facility] Last Admin: 04/13/17 15:43 Dose: 100 drops/hr Ceftriaxone Sodium (Rocephin 1 Gram Ivpb) 1 gm in 100 mls @ 100 mls/hr IVPB DAILY [facility] PRN Reason: Protocol Last Admin: 04/13/17 09:09 Dose: 100 mls/hr Ibuprofen (Motrin Tab) 400 mg PO Q6H PRN PRN Reason: Fever >100.4 F Insulin Human Regular (Humulin R Low) 0 units SC ACHS [facility] PRN Reason: Protocol Last Admin: 04/13/17 17:06 Dose: 2 units Metformin HCl (Glucophage) 850 mg PO TID [facility] Last Admin: 04/13/17 17:06 Dose: 850 mg Metoprolol Tartrate (Lopressor) 25 mg PO BID [facility] Last Admin: 04/13/17 17:06 Dose: 25 mg Non-Formulary Medication (Acetaminophen [Tylenol Extra Strength]) 500 mg PO BID PRN PRN Reason: Pain, moderate (4-7) Oxycodone HCl (Oxycontin Extended Release Tab) 20 mg PO Q12 [facility] Last Admin: 04/13/17 09:08 Dose: 20 mg Oxycodone/Acetaminophen (Percocet 5/325 Mg Tab) 1 tab PO Q4H PRN PRN Reason: Pain, Mild (1-3) Stop: 04/14/17 15:15 Last Admin: 04/13/17 17:11 Dose: 1 tab Pantoprazole Sodium (Protonix Ec Tab) 40 mg PO 0600 [facility] Last Admin: 04/12/17 07:52 Dose: 40 mg Polyethylene Glycol (Miralax) 17 gm PO BID PRN PRN Reason: Constipation Last Admin: 04/13/17 09:15 Dose: 17 gm Sennosides (Senokot Tab) 8.6 mg PO BID [facility] Last Admin: 04/13/17 17:06 Dose: 8.6 mg Tamsulosin HCl (Flomax) 0.4 mg PO QPM [facility] Last Admin: 04/13/17 17:06 Dose: 0.4 mg - Labs Labs: 04/13/17 15:20 04/13/17 07:00 PT 10.7 Seconds (9.9-11.8) 04/10/17 06:40 INR 0.99 (0.93-1.08) 04/10/17 06:40 APTT 25.7 Seconds (23.7-30.8) 04/10/17 06:40 - Constitutional Appears: Non-toxic, No Acute Distress, Chronically Ill - Head Exam Head Exam: ATRAUMATIC, NORMOCEPHALIC - Eye Exam Eye Exam: EOMI, PERRL Pupil Exam: NORMAL ACCOMODATION, PERRL - ENT Exam ENT Exam: Mucous Membranes Moist, Normal External Ear Exam, TM's Normal Bilaterally - Neck Exam Neck Exam: Full ROM, Normal Inspection - Respiratory Exam Respiratory Exam: Clear to Ausculation Bilateral, NORMAL BREATHING PATTERN. absent: Rales, Rhonchi, Wheezes - Cardiovascular Exam Cardiovascular Exam: REGULAR RHYTHM, RRR, +S1, +S2 - GI/Abdominal Exam GI & Abdominal Exam: Soft, Normal Bowel Sounds. absent: Distended, Tenderness - Extremities Exam Extremities Exam: Full ROM, Normal Inspection - Neurological Exam Neurological Exam: Alert, Awake, CN II-XII Intact, Oriented x3 - Psychiatric Exam Psychiatric exam: Normal Affect, Normal Mood - Skin Skin Exam: Intact, Normal Color Assessment and Plan - Assessment and Plan (Free Text) Assessment: 56 yo male with decompression of L3-4 and L4-5 one day ago. Fever up to 102.0 F postsurgically with 24 hours. Noted on Rocephin and Azithromycin. Fevers are not uncommon in the first 24-72 post surgery. Supportive care. Would not add additional antibiotics at this time. Supportive care. Extensive medical history as listed above. Afebrile today. At most short course of antibiotics. Thank you for allowing me to participate in the care of the patient, we will follow with you.
--- NOTE | 2017-04-13 20:26 | CP.PCM.PN ---
<Jose Ovalle - Last Filed: 04/14/17 00:09> Subjective - Date & Time of Evaluation Date of Evaluation: 04/13/17 Time of Evaluation: 08:20 - Subjective Subjective: IM Progress Note for Hospitalist Service Patient seen and examined at bedside. No acute events reported overnight, and no acute complaints at time of exam. As per nursing, ambulating to commode with assistance and walker. Reports using incentive spirometer at least once per two hours; encouraged to increase frequency. He denies new or worsening sx , including vision changes, fever/chills, chest pain, palpitations, shortness of breath, cough, abdominal pain, N/V, diarrhea/constipation, dysuria/hematuria , focal weakness, or extremity paresthesias. Objective - Vital Signs/Intake and Output Vital Signs (last 24 hours): Temp Pulse Resp BP Pulse Ox 99 F 117 H 20 131/65 95 04/13/17 07:27 04/13/17 09:08 04/13/17 07:27 04/13/17 09:08 04/13/17 07:27 Intake and Output: 04/13/17 04/14/17 18:59 06:59 Intake Total 600 Balance 600 - Medications Medications: Current Medications Acetaminophen (Tylenol 325mg Tab) 650 mg PO Q6H PRN PRN Reason: Fever >100.4 F Last Admin: 04/11/17 21:05 Dose: 650 mg Ascorbic Acid (Vitamin C 500 Mg Tab) 500 mg PO DAILY [facility] Last Admin: 04/13/17 09:08 Dose: 500 mg Atorvastatin Calcium (Lipitor) 10 mg PO QPM [facility] Last Admin: 04/13/17 17:06 Dose: 10 mg Azithromycin (Zithromax) 500 mg PO DAILY [facility] PRN Reason: Protocol Last Admin: 04/13/17 09:08 Dose: 500 mg Bacitracin (Bacitracin) 0 gm TOP DAILY [facility] Last Admin: 04/13/17 09:09 Dose: 1 u Ferrous Sulfate (Feosol) 324 mg PO TID [facility] Last Admin: 04/12/17 17:32 Dose: 324 mg Hydralazine HCl (Apresoline) 10 mg IVP Q6 PRN PRN Reason: Systolic Blood Pressure Last Admin: 04/10/17 21:16 Dose: 10 mg Hydromorphone HCl (Dilaudid) 0.5 mg IVP Q2 PRN PRN Reason: Pain, severe (8-10) Last Admin: 04/13/17 05:03 Dose: 0.5 mg Lactated Ringer's (Lactated Ringer's) 1,000 mls @ 100 drops/hr IV .Q24H [facility] Last Admin: 04/13/17 15:43 Dose: 100 drops/hr Ceftriaxone Sodium (Rocephin 1 Gram Ivpb) 1 gm in 100 mls @ 100 mls/hr IVPB DAILY [facility] PRN Reason: Protocol Last Admin: 04/13/17 09:09 Dose: 100 mls/hr Ibuprofen (Motrin Tab) 400 mg PO Q6H PRN PRN Reason: Fever >100.4 F Insulin Human Regular (Humulin R Low) 0 units SC ACHS [facility] PRN Reason: Protocol Last Admin: 04/13/17 17:06 Dose: 2 units Metformin HCl (Glucophage) 850 mg PO TID [facility] Last Admin: 04/13/17 17:06 Dose: 850 mg Metoprolol Tartrate (Lopressor) 25 mg PO BID [facility] Last Admin: 04/13/17 17:06 Dose: 25 mg Non-Formulary Medication (Acetaminophen [Tylenol Extra Strength]) 500 mg PO BID PRN PRN Reason: Pain, moderate (4-7) Oxycodone HCl (Oxycontin Extended Release Tab) 20 mg PO Q12 [facility] Last Admin: 04/13/17 09:08 Dose: 20 mg Oxycodone/Acetaminophen (Percocet 5/325 Mg Tab) 1 tab PO Q4H PRN PRN Reason: Pain, Mild (1-3) Stop: 04/14/17 15:15 Last Admin: 04/13/17 17:11 Dose: 1 tab Pantoprazole Sodium (Protonix Ec Tab) 40 mg PO 0600 [facility] Last Admin: 04/12/17 07:52 Dose: 40 mg Polyethylene Glycol (Miralax) 17 gm PO BID PRN PRN Reason: Constipation Last Admin: 04/13/17 09:15 Dose: 17 gm Sennosides (Senokot Tab) 8.6 mg PO BID [facility] Last Admin: 04/13/17 17:06 Dose: 8.6 mg Tamsulosin HCl (Flomax) 0.4 mg PO QPM [facility] Last Admin: 04/13/17 17:06 Dose: 0.4 mg - Labs Labs: 04/13/17 15:20 04/13/17 07:00 PT 10.7 Seconds (9.9-11.8) 04/10/17 06:40 INR 0.99 (0.93-1.08) 04/10/17 06:40 APTT 25.7 Seconds (23.7-30.8) 04/10/17 06:40 - Additional Findings Additional findings: - Constitutional Appears: No Acute Distress - Head Exam Head Exam: ATRAUMATIC, NORMAL INSPECTION, NORMOCEPHALIC - Eye Exam Eye Exam: EOMI, Normal appearance. Absent: Scleral icterus, Conjunctival injection - ENT Exam ENT Exam: Mucous Membranes Moist, Normal Exam - Respiratory Exam Respiratory Exam: Decreased Breath Sounds, Clear to Ausculation Bilateral, NORMAL BREATHING PATTERN - Cardiovascular Exam Cardiovascular Exam: REGULAR RHYTHM, +S1, +S2. absent: Murmur - GI/Abdominal Exam GI & Abdominal Exam: Soft, Normal Bowel Sounds. absent: Tenderness - Extremities Exam Extremities Exam: Full ROM, Normal Capillary Refill, Normal Inspection. absent : Pedal Edema, Tenderness - Neurological Exam Neurological Exam: Alert, Awake, Following all commands appropriately, moving extremities spontaneously - Psychiatric Exam Psychiatric exam: Normal Affect, Normal Mood - Skin Skin Exam: Dry, Intact, Normal Color, Warm Assessment and Plan - Assessment and Plan (Free Text) Assessment: This is a 56 yo M with PMH of HTN, HLD, DM2, BPH, and disc disease who presented for post-operative observation of L3-4, 4-5 decompression, and is currently undergoing septic workup with abx tx due to fever and CXR concerning for patchy infiltrates. Plan: 1. S/P L3-4, 4-5 decompression -Pain Control: started Oxycontin 20mg PO Q12H, continue Dilaudid 0.5mg IVP Q2H PRN and Tylenol 650mg Q6H PRN -maintaining good urine output through mosher, passing flatus, but still no BM; Miralax BID ordered -Diet: Hearth Healthy Carbohydrate Modified, may eat as tolerated -continue ferrous sulfate and ascorbic acid -wound care team consulted, appreciate all assistance in this patient's care -continue PT/OT, who recommends discharge to home; ambulating today with walker and assistance. -will follow up neurosurgical recommendations 2. Fever with possible patchy infiltrate on CXR -likely post-op atelectasis and fever vs pneumonia -undergoing septic workup -procal elevated at 1.33 -blood cultures negative at 24 hours 3. Transaminitis: improved -AST/ALT: was 102/63, 80/59 today -hepatitis panel negative -hepatic and gallbladder ultrasound: [id number] gallbladder distention without cholelithiasis/pericholecystic fluid collection. Gallbladder wall normal thickness 4. HTN -continue Lopressor [facility], Hydralazine 10mg IVP Q6H PRN for SBP over 170mmHG -continue to monitor 5. HLD -continue lipitor 6. DM2 -increased Metformin to 850mg TID -A1C still pending -continue SSI-Low ACHS -fingersticks ACHS -Carbohydrate Consistent Diet-Moderate 7. BPH -continue flomax -mosher catheter in place and draining well Dispo: Med/Surg, pending remaining results of septic workup FEN: Heart-healthy, LR 100cc/hr Access: Peripheral IV Consults: ID, Neurosurg (is primary) Ppx: Protonix for GI, SCDs for DVT Patient seen, reviewed, and discussed with attending, Dr. Holly Estrada <Holly Estrada - Last Filed: 04/14/17 16:11> Objective - Vital Signs/Intake and Output Vital Signs (last 24 hours): Temp Pulse Resp BP Pulse Ox 98.4 F 101 H 18 155/89 H 91 L 04/14/17 14:57 04/14/17 14:57 04/14/17 14:57 04/14/17 14:57 04/14/17 07:58 Intake and Output: 04/14/17 04/14/17 06:59 18:59 Intake Total 490 Output Total 375 311 Balance -375 179 - Medications Medications: Current Medications Acetaminophen (Tylenol 325mg Tab) 650 mg PO Q6H PRN PRN Reason: Fever >100.4 F Last Admin: 04/11/17 21:05 Dose: 650 mg Ascorbic Acid (Vitamin C 500 Mg Tab) 500 mg PO DAILY [facility] Last Admin: 04/14/17 10:17 Dose: 500 mg Atorvastatin Calcium (Lipitor) 10 mg PO QPM [facility] Last Admin: 04/13/17 17:06 Dose: 10 mg Azithromycin (Zithromax) 500 mg PO DAILY [facility] PRN Reason: Protocol Last Admin: 04/14/17 10:17 Dose: 500 mg Bacitracin (Bacitracin) 0 gm TOP DAILY [facility] Last Admin: 04/14/17 10:16 Dose: 1 u Ferrous Sulfate (Feosol) 324 mg PO TID [facility] Last Admin: 04/12/17 17:32 Dose: 324 mg Hydralazine HCl (Apresoline) 10 mg IVP Q6 PRN PRN Reason: Systolic Blood Pressure Last Admin: 04/10/17 21:16 Dose: 10 mg Hydromorphone HCl (Dilaudid) 0.5 mg IVP Q2 PRN PRN Reason: Pain, severe (8-10) Last Admin: 04/14/17 10:14 Dose: 0.5 mg Lactated Ringer's (Lactated Ringer's) 1,000 mls @ 100 drops/hr IV .Q24H [facility] Last Admin: 04/14/17 10:16 Dose: 100 drops/hr Ceftriaxone Sodium (Rocephin 1 Gram Ivpb) 1 gm in 100 mls @ 100 mls/hr IVPB DAILY [facility] PRN Reason: Protocol Last Admin: 04/14/17 10:16 Dose: 100 mls/hr Ibuprofen (Motrin Tab) 400 mg PO Q6H PRN PRN Reason: Fever >100.4 F Insulin Human Regular (Humulin R Low) 0 units SC ACHS [facility] PRN Reason: Protocol Last Admin: 04/14/17 12:53 Dose: 1 units Metformin HCl (Glucophage) 850 mg PO TID [facility] Last Admin: 04/14/17 15:04 Dose: 850 mg Metoprolol Tartrate (Lopressor) 25 mg PO BID [facility] Last Admin: 04/14/17 10:17 Dose: 25 mg Non-Formulary Medication (Acetaminophen [Tylenol Extra Strength]) 500 mg PO BID PRN PRN Reason: Pain, moderate (4-7) Oxycodone HCl (Oxycontin Extended Release Tab) 20 mg PO Q12 [facility] Last Admin: 04/14/17 10:17 Dose: 20 mg Pantoprazole Sodium (Protonix Ec Tab) 40 mg PO 0600 [facility] Last Admin: 04/14/17 05:13 Dose: 40 mg Polyethylene Glycol (Miralax) 17 gm PO BID PRN PRN Reason: Constipation Last Admin: 04/13/17 09:15 Dose: 17 gm Sennosides (Senokot Tab) 8.6 mg PO BID [facility] Last Admin: 04/14/17 10:17 Dose: 8.6 mg Tamsulosin HCl (Flomax) 0.4 mg PO QPM [facility] Last Admin: 04/13/17 17:06 Dose: 0.4 mg - Labs Labs: 04/14/17 05:20 04/14/17 05:20 PT 10.7 Seconds (9.9-11.8) 04/10/17 06:40 INR 0.99 (0.93-1.08) 04/10/17 06:40 APTT 25.7 Seconds (23.7-30.8) 04/10/17 06:40 Attending/Attestation - Attestation I have personally seen and examined this patient.: Yes I have fully participated in the care of the patient.: Yes I have reviewed all pertinent clinical information, including history, physical exam and plan: Yes Notes (Text): I have seen and examined the patient at bedside. Agree with the above note with the following additions/ exceptions: Briefly this is 56 year old male with history of HTN, HLD, DM2, BPH, and lumbar radiculopathy who underwent L3-4, 4-5 decompression 3 days ago by neurosurgeon. His pain is being managed by NS. Patient still complains of pain which is radiating in his LLE. He is afebrile today. Was able to walk to the bathroom. CXR revealed bibasilar infiltrates. He is on Roecphin and zithro. Will give a short course of abx for post op fever. Mosher was removed today and he had slight bleeding after removal. Hb is 7.8. Will transfuse if he becomes symptomatic. Blood sugar has improved. Will follow up on hba1c. Continue ISS, metformin 850 TID and lopressor. Encourage to use incentive spirometer. Continue flomax. Upon discharge patient will follow up with PMD of choice. Dr Holly Estrada
[2017-04-13 22:14] LABS: BASO # 0.01 K/mm3 (0.0-2.0); BASO % 0.1 % (0.0-3.0); EOS # 0.3 (0.0-0.7); EOS % 3.1 % (1.5-5.0); GRAN # 7.39 (1.4-6.5); GRAN % 75.9 % (50.0-68.0); LYMPH # 1.4 (1.2-3.4); LYMPH % 14.4 % (22.0-35.0); MEAN CELL VOLUME 85.2 fl (80.0-105.0); MEAN CORPUSCULAR HEMOGLOBIN 29.3 pg (25.0-35.0); MEAN CORPUSCULAR HGB CONC 34.3 g/dl (31.0-37.0); MEAN PLATELET VOLUME 9.5 fl (7.0-11.0); MONO # 0.6 (0.1-0.6); MONO % 6.5 % (1.0-6.0); RED CELL DISTRIBUTION WIDTH 12.4 % (11.5-14.5); WHITE BLOOD COUNT 9.7 10^3/ul (4.5-11.0)
[2017-04-14] MEDS: Oxycodone/Acetaminophen 5/325 mg Tab PO PRN (05:13)
[2017-04-14] MEDS: Pantoprazole 40 mg EC Tab PO SCH (05:13)
[2017-04-14] MEDS: HYDROmorphone 0.5 mg/0.5 ml ISec IVP PRN ×5 (05:38→23:08)
[2017-04-14 06:15] LABS: BASO # 0.01 K/mm3 (0.0-2.0); BASO % 0.1 % (0.0-3.0); EOS # 0.4 (0.0-0.7); GRAN # 5.56 (1.4-6.5); GRAN % 62.3 % (50.0-68.0); LYMPH # 2.3 (1.2-3.4); LYMPH % 25.8 % (22.0-35.0); MEAN CELL VOLUME 85.4 fl (80.0-105.0); MEAN CORPUSCULAR HEMOGLOBIN 28.7 pg (25.0-35.0); MEAN CORPUSCULAR HGB CONC 33.6 g/dl (31.0-37.0); MEAN PLATELET VOLUME 9.4 fl (7.0-11.0); MONO # 0.7 (0.1-0.6); MONO % 7.8 % (1.0-6.0); RED CELL DISTRIBUTION WIDTH 12.5 % (11.5-14.5); WHITE BLOOD COUNT 8.9 10^3/ul (4.5-11.0)
[2017-04-14 06:29] LABS: HEMATOCRIT 22.9 % (42.0-52.0)
[2017-04-14 07:03] LABS: ALB/GLOB RATIO 0.9 (1.1-1.8); ALKALINE PHOSPHATASE 92 U/L (38-133); ALT/SGPT 47 U/L (7-56); AST/SGOT 56 U/L (15-59); BILIRUBIN,TOTAL 0.9 mg/dL (0.2-1.3); BLOOD UREA NITROGEN 11 mg/dL (7-21); CALCIUM 8.6 mg/dL (8.4-10.5); CARBON DIOXIDE 26 mmol/L (21-33); CHLORIDE 100 mmol/L (95-110); GFR AFRICAN-AMERICAN > 60; GLUCOSE,RANDOM 168 mg/dL (70-110); POTASSIUM 3.4 mmol/L (3.6-5.0); SODIUM 139 mmol/L (132-148); TOTAL PROTEIN 6.3 g/dL (5.8-8.3)
[2017-04-14] MEDS: Insulin Reg-LOW-Coverage SC SCH ×4 (07:45→22:13)
[2017-04-14] MEDS ORDERED: Potassium Chloride 20 mEq ER Tab PO ONE (07:53)
[2017-04-14] MEDS ORDERED: Potassium Chloride 40 mEq/30 ml LIQ UD PO ONE (09:24)
[2017-04-14] MEDS: Lactated Ringer's 1,000 ML IV SCH (10:16)
[2017-04-14] MEDS: cefTRIAXone 1 gm 1 GM/100 ML BAG IVPB SCH (10:16)
[2017-04-14] MEDS: Bacitracin Ointment 30 GM TUBE TOP SCH (10:16)
[2017-04-14] MEDS: oxyCODONE 20 mg ER Tab (oxyCONTIN) PO SCH ×2 (10:17→21:22)
--- NOTE | 2017-04-14 12:28 | CP.PCM.PN ---
<Harley Samuel - Last Filed: 04/14/17 16:27> Subjective - Date & Time of Evaluation Date of Evaluation: 04/14/17 Time of Evaluation: 08:35 - Subjective Subjective: Harley Samuel DO, PGY-1, Hospitalist Service Patient seen and examined at bedside. Patient reports waking up last night, with sudden onset of chest palpitations, light headedness, and some diaphoresis , lasting about 2 minutes. Patient, currently denies chest pain, but admits to epigastric discomfort and not tolerating the PO Percocet well. Patient still has pain extending from the lower lumbar spine down the RLE. Patient also reports difficulty initiation stream and pain with urination. Objective - Vital Signs/Intake and Output Vital Signs (last 24 hours): Temp Pulse Resp BP Pulse Ox 99.5 F 114 H 18 136/90 91 L 04/14/17 07:58 04/14/17 10:17 04/14/17 07:58 04/14/17 10:17 04/14/17 07:58 Intake and Output: 04/14/17 04/14/17 06:59 18:59 Intake Total 480 Output Total 375 Balance -375 480 - Medications Medications: Current Medications Acetaminophen (Tylenol 325mg Tab) 650 mg PO Q6H PRN PRN Reason: Fever >100.4 F Last Admin: 04/11/17 21:05 Dose: 650 mg Ascorbic Acid (Vitamin C 500 Mg Tab) 500 mg PO DAILY [facility] Last Admin: 04/14/17 10:17 Dose: 500 mg Atorvastatin Calcium (Lipitor) 10 mg PO QPM [facility] Last Admin: 04/13/17 17:06 Dose: 10 mg Azithromycin (Zithromax) 500 mg PO DAILY [facility] PRN Reason: Protocol Last Admin: 04/14/17 10:17 Dose: 500 mg Bacitracin (Bacitracin) 0 gm TOP DAILY [facility] Last Admin: 04/14/17 10:16 Dose: 1 u Ferrous Sulfate (Feosol) 324 mg PO TID [facility] Last Admin: 04/12/17 17:32 Dose: 324 mg Hydralazine HCl (Apresoline) 10 mg IVP Q6 PRN PRN Reason: Systolic Blood Pressure Last Admin: 04/10/17 21:16 Dose: 10 mg Hydromorphone HCl (Dilaudid) 0.5 mg IVP Q2 PRN PRN Reason: Pain, severe (8-10) Last Admin: 04/14/17 10:14 Dose: 0.5 mg Lactated Ringer's (Lactated Ringer's) 1,000 mls @ 100 drops/hr IV .Q24H [facility] Last Admin: 04/14/17 10:16 Dose: 100 drops/hr Ceftriaxone Sodium (Rocephin 1 Gram Ivpb) 1 gm in 100 mls @ 100 mls/hr IVPB DAILY [facility] PRN Reason: Protocol Last Admin: 04/14/17 10:16 Dose: 100 mls/hr Ibuprofen (Motrin Tab) 400 mg PO Q6H PRN PRN Reason: Fever >100.4 F Insulin Human Regular (Humulin R Low) 0 units SC ACHS [facility] PRN Reason: Protocol Last Admin: 04/14/17 07:45 Dose: 1 units Metformin HCl (Glucophage) 850 mg PO TID [facility] Last Admin: 04/14/17 10:17 Dose: 850 mg Metoprolol Tartrate (Lopressor) 25 mg PO BID [facility] Last Admin: 04/14/17 10:17 Dose: 25 mg Non-Formulary Medication (Acetaminophen [Tylenol Extra Strength]) 500 mg PO BID PRN PRN Reason: Pain, moderate (4-7) Oxycodone HCl (Oxycontin Extended Release Tab) 20 mg PO Q12 [facility] Last Admin: 04/14/17 10:17 Dose: 20 mg Oxycodone/Acetaminophen (Percocet 5/325 Mg Tab) 1 tab PO Q4H PRN PRN Reason: Pain, Mild (1-3) Stop: 04/14/17 15:15 Last Admin: 04/14/17 05:13 Dose: 1 tab Pantoprazole Sodium (Protonix Ec Tab) 40 mg PO 0600 [facility] Last Admin: 04/14/17 05:13 Dose: 40 mg Polyethylene Glycol (Miralax) 17 gm PO BID PRN PRN Reason: Constipation Last Admin: 04/13/17 09:15 Dose: 17 gm Sennosides (Senokot Tab) 8.6 mg PO BID [facility] Last Admin: 04/14/17 10:17 Dose: 8.6 mg Tamsulosin HCl (Flomax) 0.4 mg PO QPM [facility] Last Admin: 04/13/17 17:06 Dose: 0.4 mg - Labs Labs: 04/14/17 05:20 04/14/17 05:20 PT 10.7 Seconds (9.9-11.8) 04/10/17 06:40 INR 0.99 (0.93-1.08) 04/10/17 06:40 APTT 25.7 Seconds (23.7-30.8) 04/10/17 06:40 - Constitutional Appears: No Acute Distress - Head Exam Head Exam: ATRAUMATIC, NORMOCEPHALIC - Eye Exam Eye Exam: EOMI, Normal appearance, PERRL - ENT Exam ENT Exam: Mucous Membranes Moist, Normal Oropharynx - Neck Exam Neck Exam: Normal Inspection - Respiratory Exam Respiratory Exam: Decreased Breath Sounds (right greater than left), NORMAL BREATHING PATTERN - Cardiovascular Exam Cardiovascular Exam: RRR, +S1, +S2 - GI/Abdominal Exam GI & Abdominal Exam: Tenderness (epigastric area). absent: Rigid, Rebound - Extremities Exam Extremities Exam: Full ROM, Normal Capillary Refill, Normal Inspection - Back Exam Back Exam: absent: vertebral tenderness - Neurological Exam Neurological Exam: Alert, CN II-XII Intact, Oriented x3 Neuro motor strength exam: Left Upper Extremity: 5, Right Upper Extremity: 4, Left Lower Extremity: 5, Right Lower Extremity: 5 - Psychiatric Exam Psychiatric exam: Flat Affect, Normal Affect, Normal Mood - Skin Skin Exam: Dry, Intact, Normal Color, Warm Assessment and Plan - Assessment and Plan (Free Text) Assessment: This is a 56 yo M with PMH of HTN, HLD, DM2, BPH, and disc disease who presented for post-operative observation of L3-4, 4-5 decompression, and is currently undergoing septic workup with abx tx due to fever and CXR concerning for patchy infiltrates. Plan: 1a) Symptomatic anemia - H/H has fallen from 12.9 to 7.7 from day of admission to 04/14. - Patient reports palpitations, light headedness when going from lying flat to standing. - Type and Screen, 1 unit of Leukoreduced PRBC ordered for transfusion, consent obtained. 1b) S/P L3-4, 4-5 decompression -Pain Control: started Oxycontin 20mg PO Q12H, continue Dilaudid 0.5mg IVP Q2H PRN and Tylenol 650mg Q6H PRN -Concern for urinary retention, PVUS ordered. -Diet: Hearth Healthy Carbohydrate Modified, may eat as tolerated -continue ferrous sulfate and ascorbic acid -wound care team consulted, appreciate all assistance in this patient's care -continue PT/OT, who recommends discharge to home; ambulating today with walker and assistance. -will follow up neurosurgical recommendations 2. Fever with possible patchy infiltrate on CXR -likely post-op atelectasis and fever vs pneumonia -undergoing septic workup -procal elevated at 1.33 -blood cultures negative at 24 hours - no leukocytosis, or fevers - continue with Rocephin and Azithromycin for CAP 3. HTN -continue Lopressor ANGELO, Hydralazine 10mg IVP Q6H PRN for SBP over 170mmHG -continue to monitor 5. HLD -continue lipitor 6. DM2 -increased Metformin to 850mg TID -A1C of 6.8 -continue SSI-Low ACHS -fingersticks ACHS -Carbohydrate Consistent Diet-Moderate 7. BPH -continue flomax -mosher catheter removed, patient having trouble voiding and reports dysuria, urine analysis with culture ordered as well and PVUS Dispo: Med/Surg, pending remaining results of septic workup FEN: Heart-healthy, LR 100cc/hr Access: Peripheral IV Consults: ID, Neurosurg (is primary) Ppx: Protonix for GI, SCDs for DVT Patient seen, reviewed, and discussed with attending, Dr. Holly Estrada <Holly Estrada - Last Filed: 04/14/17 16:59> Objective - Vital Signs/Intake and Output Vital Signs (last 24 hours): Temp Pulse Resp BP Pulse Ox 97.2 F L 69 18 155/75 H 91 L 04/14/17 15:42 04/14/17 15:42 04/14/17 15:42 04/14/17 15:42 04/14/17 07:58 Intake and Output: 04/14/17 04/14/17 06:59 18:59 Intake Total 490 Output Total 375 311 Balance -375 179 - Medications Medications: Current Medications Acetaminophen (Tylenol 325mg Tab) 650 mg PO Q6H PRN PRN Reason: Fever >100.4 F Last Admin: 04/11/17 21:05 Dose: 650 mg Ascorbic Acid (Vitamin C 500 Mg Tab) 500 mg PO DAILY [facility] Last Admin: 04/14/17 10:17 Dose: 500 mg Atorvastatin Calcium (Lipitor) 10 mg PO QPM [facility] Last Admin: 04/13/17 17:06 Dose: 10 mg Azithromycin (Zithromax) 500 mg PO DAILY [facility] PRN Reason: Protocol Last Admin: 04/14/17 10:17 Dose: 500 mg Bacitracin (Bacitracin) 0 gm TOP DAILY [facility] Last Admin: 04/14/17 10:16 Dose: 1 u Ferrous Sulfate (Feosol) 324 mg PO TID [facility] Last Admin: 04/12/17 17:32 Dose: 324 mg Hydralazine HCl (Apresoline) 10 mg IVP Q6 PRN PRN Reason: Systolic Blood Pressure Last Admin: 04/10/17 21:16 Dose: 10 mg Hydromorphone HCl (Dilaudid) 0.5 mg IVP Q2 PRN PRN Reason: Pain, severe (8-10) Last Admin: 04/14/17 10:14 Dose: 0.5 mg Lactated Ringer's (Lactated Ringer's) 1,000 mls @ 100 drops/hr IV .Q24H [facility] Last Admin: 04/14/17 10:16 Dose: 100 drops/hr Ceftriaxone Sodium (Rocephin 1 Gram Ivpb) 1 gm in 100 mls @ 100 mls/hr IVPB DAILY [facility] PRN Reason: Protocol Last Admin: 04/14/17 10:16 Dose: 100 mls/hr Ibuprofen (Motrin Tab) 400 mg PO Q6H PRN PRN Reason: Fever >100.4 F Insulin Human Regular (Humulin R Low) 0 units SC ACHS [facility] PRN Reason: Protocol Last Admin: 04/14/17 12:53 Dose: 1 units Metformin HCl (Glucophage) 850 mg PO TID [facility] Last Admin: 04/14/17 15:04 Dose: 850 mg Metoprolol Tartrate (Lopressor) 25 mg PO BID [facility] Last Admin: 04/14/17 10:17 Dose: 25 mg Non-Formulary Medication (Acetaminophen [Tylenol Extra Strength]) 500 mg PO BID PRN PRN Reason: Pain, moderate (4-7) Oxycodone HCl (Oxycontin Extended Release Tab) 20 mg PO Q12 [facility] Last Admin: 04/14/17 10:17 Dose: 20 mg Pantoprazole Sodium (Protonix Ec Tab) 40 mg PO 0600 [facility] Last Admin: 04/14/17 05:13 Dose: 40 mg Polyethylene Glycol (Miralax) 17 gm PO BID PRN PRN Reason: Constipation Last Admin: 04/13/17 09:15 Dose: 17 gm Sennosides (Senokot Tab) 8.6 mg PO BID [facility] Last Admin: 04/14/17 10:17 Dose: 8.6 mg Tamsulosin HCl (Flomax) 0.4 mg PO QPM [facility] Last Admin: 04/13/17 17:06 Dose: 0.4 mg - Labs Labs: 04/14/17 05:20 04/14/17 05:20 PT 10.7 Seconds (9.9-11.8) 04/10/17 06:40 INR 0.99 (0.93-1.08) 04/10/17 06:40 APTT 25.7 Seconds (23.7-30.8) 04/10/17 06:40 Attending/Attestation - Attestation I have personally seen and examined this patient.: Yes I have fully participated in the care of the patient.: Yes I have reviewed all pertinent clinical information, including history, physical exam and plan: Yes Notes (Text): I have seen and examined the patient at bedside. Agree with the above note with the following additions / exceptions: Briefly this is 56 year old male with history of HTN, HLD, DM2, BPH, and lumbar radiculopathy who underwent L3-4, 4-5 decompression few days ago. He had postop fever which has resolved now. He has been afebrile for the past 2 days. Today he is complaining of dizziness and palpitations especially upon standing up. Hb was noticed to be 7. Will transfuse 1 unit of prbc. Also found to have tenderness in suprapubic area. Post void residual urine was about 300 cc. Mosher was reinserted. Urology was consulted. Discussed in detail with Dr Em. Blood sugar is stable. Hba1c is 6.6. Continue ISS, metformin 850 TID and lopressor. Encourage to use incentive spirometer. Continue flomax. Upon discharge patient will follow up with PMD of choice. Dr Holly Estrada
--- NOTE | 2017-04-14 15:38 | CP.PCM.PN ---
Subjective - Date & Time of Evaluation Date of Evaluation: 04/14/17 Time of Evaluation: 15:32 - Subjective Subjective: SPINE -POD#4 Pt resting in bed. Receiving transfusion. Complains of difficulty voiding. Afebrile. Sl tachycardic. Bladder distended. Neuro intact. Incision clean and dry. Hgb 7.7 this am. Plan: Reinsert mosher and get consult. Check w Med re: H/H. Discharge planning. Objective - Vital Signs/Intake and Output Vital Signs (last 24 hours): Temp Pulse Resp BP Pulse Ox 98.4 F 101 H 18 155/89 H 91 L 04/14/17 14:57 04/14/17 14:57 04/14/17 14:57 04/14/17 14:57 04/14/17 07:58 Intake and Output: 04/14/17 04/14/17 06:59 18:59 Intake Total 490 Output Total 375 311 Balance -375 179 - Medications Medications: Current Medications Acetaminophen (Tylenol 325mg Tab) 650 mg PO Q6H PRN PRN Reason: Fever >100.4 F Last Admin: 04/11/17 21:05 Dose: 650 mg Ascorbic Acid (Vitamin C 500 Mg Tab) 500 mg PO DAILY [facility] Last Admin: 04/14/17 10:17 Dose: 500 mg Atorvastatin Calcium (Lipitor) 10 mg PO QPM [facility] Last Admin: 04/13/17 17:06 Dose: 10 mg Azithromycin (Zithromax) 500 mg PO DAILY [facility] PRN Reason: Protocol Last Admin: 04/14/17 10:17 Dose: 500 mg Bacitracin (Bacitracin) 0 gm TOP DAILY [facility] Last Admin: 04/14/17 10:16 Dose: 1 u Ferrous Sulfate (Feosol) 324 mg PO TID [facility] Last Admin: 04/12/17 17:32 Dose: 324 mg Hydralazine HCl (Apresoline) 10 mg IVP Q6 PRN PRN Reason: Systolic Blood Pressure Last Admin: 04/10/17 21:16 Dose: 10 mg Hydromorphone HCl (Dilaudid) 0.5 mg IVP Q2 PRN PRN Reason: Pain, severe (8-10) Last Admin: 04/14/17 10:14 Dose: 0.5 mg Lactated Ringer's (Lactated Ringer's) 1,000 mls @ 100 drops/hr IV .Q24H [facility] Last Admin: 04/14/17 10:16 Dose: 100 drops/hr Ceftriaxone Sodium (Rocephin 1 Gram Ivpb) 1 gm in 100 mls @ 100 mls/hr IVPB DAILY [facility] PRN Reason: Protocol Last Admin: 04/14/17 10:16 Dose: 100 mls/hr Ibuprofen (Motrin Tab) 400 mg PO Q6H PRN PRN Reason: Fever >100.4 F Insulin Human Regular (Humulin R Low) 0 units SC ACHS [facility] PRN Reason: Protocol Last Admin: 04/14/17 12:53 Dose: 1 units Metformin HCl (Glucophage) 850 mg PO TID [facility] Last Admin: 04/14/17 15:04 Dose: 850 mg Metoprolol Tartrate (Lopressor) 25 mg PO BID [facility] Last Admin: 04/14/17 10:17 Dose: 25 mg Non-Formulary Medication (Acetaminophen [Tylenol Extra Strength]) 500 mg PO BID PRN PRN Reason: Pain, moderate (4-7) Oxycodone HCl (Oxycontin Extended Release Tab) 20 mg PO Q12 [facility] Last Admin: 04/14/17 10:17 Dose: 20 mg Pantoprazole Sodium (Protonix Ec Tab) 40 mg PO 0600 [facility] Last Admin: 04/14/17 05:13 Dose: 40 mg Polyethylene Glycol (Miralax) 17 gm PO BID PRN PRN Reason: Constipation Last Admin: 04/13/17 09:15 Dose: 17 gm Sennosides (Senokot Tab) 8.6 mg PO BID [facility] Last Admin: 04/14/17 10:17 Dose: 8.6 mg Tamsulosin HCl (Flomax) 0.4 mg PO QPM [facility] Last Admin: 04/13/17 17:06 Dose: 0.4 mg - Labs Labs: 04/14/17 05:20 04/14/17 05:20 PT 10.7 Seconds (9.9-11.8) 04/10/17 06:40 INR 0.99 (0.93-1.08) 04/10/17 06:40 APTT 25.7 Seconds (23.7-30.8) 04/10/17 06:40
--- NOTE | 2017-04-14 22:36 | CP.PCM.PN ---
Subjective - Date & Time of Evaluation Date of Evaluation: 04/14/17 Time of Evaluation: 20:00 - Subjective Subjective: Infectious Disease Follow Up: April 14, 2017 56 yo male with spinal L3-4 and L4-5 compression. Taken by neurosurgeon for decompression yesterday. The patient had fevers the day later. He does not report any new issues. Patient's back pain started in 2013 while lifting a heavy object. The patient can have post surgical fevers for up to 3 days. He is uncomfortable s/p surgery. Afebrile today. Patient feeling better. However, difficulty with voiding. The patient had mosher placed back today. Bladder distended. Remains afebrile. Objective - Vital Signs/Intake and Output Vital Signs (last 24 hours): Temp Pulse Resp BP Pulse Ox 98.5 F 96 H 18 167/88 H 95 04/14/17 17:27 04/14/17 18:05 04/14/17 17:27 04/14/17 18:05 04/14/17 16:00 Intake and Output: 04/14/17 04/15/17 18:59 06:59 Intake Total 815 240 Output Total 413 300 Balance 402 -60 - Medications Medications: Current Medications Acetaminophen (Tylenol 325mg Tab) 650 mg PO Q6H PRN PRN Reason: Fever >100.4 F Last Admin: 04/11/17 21:05 Dose: 650 mg Ascorbic Acid (Vitamin C 500 Mg Tab) 500 mg PO DAILY [facility] Last Admin: 04/14/17 10:17 Dose: 500 mg Atorvastatin Calcium (Lipitor) 10 mg PO QPM [facility] Last Admin: 04/14/17 18:05 Dose: 10 mg Azithromycin (Zithromax) 500 mg PO DAILY [facility] PRN Reason: Protocol Last Admin: 04/14/17 10:17 Dose: 500 mg Bacitracin (Bacitracin) 0 gm TOP DAILY [facility] Last Admin: 04/14/17 10:16 Dose: 1 u Ferrous Sulfate (Feosol) 324 mg PO TID [facility] Last Admin: 04/12/17 17:32 Dose: 324 mg Hydralazine HCl (Apresoline) 10 mg IVP Q6 PRN PRN Reason: Systolic Blood Pressure Last Admin: 04/10/17 21:16 Dose: 10 mg Hydromorphone HCl (Dilaudid) 0.5 mg IVP Q2 PRN PRN Reason: Pain, severe (8-10) Last Admin: 04/14/17 19:00 Dose: 0.5 mg Lactated Ringer's (Lactated Ringer's) 1,000 mls @ 100 drops/hr IV .Q24H [facility] Last Admin: 04/14/17 10:16 Dose: 100 drops/hr Ceftriaxone Sodium (Rocephin 1 Gram Ivpb) 1 gm in 100 mls @ 100 mls/hr IVPB DAILY [facility] PRN Reason: Protocol Last Admin: 04/14/17 10:16 Dose: 100 mls/hr Ibuprofen (Motrin Tab) 400 mg PO Q6H PRN PRN Reason: Fever >100.4 F Insulin Human Regular (Humulin R Low) 0 units SC ACHS [facility] PRN Reason: Protocol Last Admin: 04/14/17 22:13 Dose: Not Given Metformin HCl (Glucophage) 850 mg PO TID [facility] Last Admin: 04/14/17 18:05 Dose: 850 mg Metoprolol Tartrate (Lopressor) 25 mg PO BID [facility] Last Admin: 04/14/17 18:05 Dose: 25 mg Non-Formulary Medication (Acetaminophen [Tylenol Extra Strength]) 500 mg PO BID PRN PRN Reason: Pain, moderate (4-7) Oxycodone HCl (Oxycontin Extended Release Tab) 20 mg PO Q12 [facility] Last Admin: 04/14/17 21:22 Dose: 20 mg Pantoprazole Sodium (Protonix Ec Tab) 40 mg PO 0600 [facility] Last Admin: 04/14/17 05:13 Dose: 40 mg Polyethylene Glycol (Miralax) 17 gm PO BID PRN PRN Reason: Constipation Last Admin: 04/13/17 09:15 Dose: 17 gm Sennosides (Senokot Tab) 8.6 mg PO BID [facility] Last Admin: 04/14/17 18:05 Dose: 8.6 mg Tamsulosin HCl (Flomax) 0.4 mg PO QPM [facility] Last Admin: 04/14/17 18:05 Dose: 0.4 mg - Labs Labs: 04/14/17 05:20 04/14/17 05:20 PT 10.7 Seconds (9.9-11.8) 04/10/17 06:40 INR 0.99 (0.93-1.08) 04/10/17 06:40 APTT 25.7 Seconds (23.7-30.8) 04/10/17 06:40 - Constitutional Appears: Non-toxic, No Acute Distress, Chronically Ill - Head Exam Head Exam: ATRAUMATIC, NORMOCEPHALIC - Eye Exam Eye Exam: EOMI, PERRL Pupil Exam: NORMAL ACCOMODATION, PERRL - ENT Exam ENT Exam: Mucous Membranes Moist, Normal External Ear Exam, TM's Normal Bilaterally - Neck Exam Neck Exam: Full ROM, Normal Inspection - Respiratory Exam Respiratory Exam: Clear to Ausculation Bilateral, NORMAL BREATHING PATTERN. absent: Rales, Rhonchi, Wheezes - Cardiovascular Exam Cardiovascular Exam: REGULAR RHYTHM, RRR, +S1, +S2 - GI/Abdominal Exam GI & Abdominal Exam: Soft, Normal Bowel Sounds. absent: Distended, Tenderness - Extremities Exam Extremities Exam: Full ROM, Normal Inspection - Neurological Exam Neurological Exam: Alert, Awake, CN II-XII Intact, Oriented x3 - Psychiatric Exam Psychiatric exam: Normal Affect, Normal Mood - Skin Skin Exam: Intact, Normal Color Assessment and Plan - Assessment and Plan (Free Text) Assessment: 56 yo male with decompression of L3-4 and L4-5 one day ago. Fever up to 102.0 F postsurgically with 24 hours. Noted on Rocephin and Azithromycin. Fevers are not uncommon in the first 24-72 post surgery. Supportive care. Would not add additional antibiotics at this time. Supportive care. Extensive medical history as listed above. Afebrile today. At most short course of antibiotics of three days or so. Supportive care. Noted mosher replaced due to bladder distension. Thank you for allowing me to participate in the care of the patient, we will follow with you.
[2017-04-15] MEDS: Lactated Ringer's 1,000 ML IV SCH (01:59)
[2017-04-15] MEDS: HYDROmorphone 0.5 mg/0.5 ml ISec IVP PRN ×5 (03:20→21:14)
[2017-04-15 07:41] LABS: BASO # 0.03 K/mm3 (0.0-2.0); BASO % 0.4 % (0.0-3.0); EOS % 12.9 % (1.5-5.0); GRAN # 4.28 (1.4-6.5); GRAN % 55.6 % (50.0-68.0); HEMATOCRIT 24.1 % (42.0-52.0); LYMPH # 1.7 (1.2-3.4); LYMPH % 21.4 % (22.0-35.0); MEAN CELL VOLUME 85.2 fl (80.0-105.0); MEAN CORPUSCULAR HEMOGLOBIN 29.3 pg (25.0-35.0); MEAN CORPUSCULAR HGB CONC 34.4 g/dl (31.0-37.0); MEAN PLATELET VOLUME 9.4 fl (7.0-11.0); MONO # 0.8 (0.1-0.6); MONO % 9.7 % (1.0-6.0); RED CELL DISTRIBUTION WIDTH 12.5 % (11.5-14.5); WHITE BLOOD COUNT 7.7 10^3/ul (4.5-11.0)
[2017-04-15 07:52] LABS: ALB/GLOB RATIO 0.9 (1.1-1.8); ALKALINE PHOSPHATASE 91 U/L (38-133); ALT/SGPT 43 U/L (7-56); AST/SGOT 44 U/L (15-59); BILIRUBIN,TOTAL 0.8 mg/dL (0.2-1.3); BLOOD UREA NITROGEN 10 mg/dL (7-21); CALCIUM 8.2 mg/dL (8.4-10.5); CARBON DIOXIDE 27 mmol/L (21-33); CHLORIDE 98 mmol/L (95-110); GFR AFRICAN-AMERICAN > 60; GLUCOSE,RANDOM 139 mg/dL (70-110); POTASSIUM 3.5 mmol/L (3.6-5.0); SODIUM 135 mmol/L (132-148)
[2017-04-15] MEDS: Insulin Reg-LOW-Coverage SC SCH ×4 (08:10→22:16)
[2017-04-15] MEDS: Bacitracin Ointment 30 GM TUBE TOP SCH (09:55)
[2017-04-15] MEDS: cefTRIAXone 1 gm 1 GM/100 ML BAG IVPB SCH (09:55)
[2017-04-15] MEDS: oxyCODONE 20 mg ER Tab (oxyCONTIN) PO SCH ×2 (09:56→21:03)
[2017-04-15 11:10] LABS: ALKALINE PHOSPHATASE 108 U/L (38-133); ALT/SGPT 52 U/L (7-56); AST/SGOT 48 U/L (15-59); BILIRUBIN,TOTAL 0.7 mg/dL (0.2-1.3); BLOOD UREA NITROGEN 10 mg/dL (7-21); CALCIUM 8.4 mg/dL (8.4-10.5); CARBON DIOXIDE 27 mmol/L (21-33); CHLORIDE 99 mmol/L (98-107); GFR AFRICAN-AMERICAN > 60; GLUCOSE,RANDOM 175 mg/dL (70-110); POTASSIUM 3.5 mmol/L (3.6-5.0); SODIUM 136 mmol/L (132-148); TOTAL PROTEIN 6.2 g/dL (5.8-8.3)
--- NOTE | 2017-04-15 13:21 | CP.PCM.PN ---
Subjective - Date & Time of Evaluation Date of Evaluation: 04/15/17 Time of Evaluation: 13:13 - Subjective Subjective: SPINE - POD #5 Pt OOB in chair. States he amb earlier. Voiding on own but c/o burning. Constipated. Complains also of back pain but seems more comfortable than before. Amb 300' yest w RW. VSS. Afebrile. Neuro ok. Incision clean. Hgb 8.3 after transfusion Plan: Await Soc Service re: rehab transfer. Urine C&S sent. Dulcolax suppos given this am. Objective - Vital Signs/Intake and Output Vital Signs (last 24 hours): Temp Pulse Resp BP Pulse Ox 97.9 F 91 H 18 164/93 H 97 04/15/17 08:14 04/15/17 09:56 04/15/17 08:14 04/15/17 09:56 04/15/17 08:14 Intake and Output: 04/15/17 04/15/17 06:59 18:59 Intake Total 240 120 Output Total 300 250 Balance -60 -130 - Medications Medications: Current Medications Acetaminophen (Tylenol 325mg Tab) 650 mg PO Q6H PRN PRN Reason: Fever >100.4 F Last Admin: 04/11/17 21:05 Dose: 650 mg Ascorbic Acid (Vitamin C 500 Mg Tab) 500 mg PO DAILY [facility] Last Admin: 04/15/17 09:56 Dose: 500 mg Atorvastatin Calcium (Lipitor) 10 mg PO QPM [facility] Last Admin: 04/14/17 18:05 Dose: 10 mg Azithromycin (Zithromax) 500 mg PO DAILY [facility] PRN Reason: Protocol Last Admin: 04/15/17 09:55 Dose: 500 mg Bacitracin (Bacitracin) 0 gm TOP DAILY [facility] Last Admin: 04/15/17 09:55 Dose: 1 u Ferrous Sulfate (Feosol) 324 mg PO TID [facility] Last Admin: 04/12/17 17:32 Dose: 324 mg Hydralazine HCl (Apresoline) 10 mg IVP Q6 PRN PRN Reason: Systolic Blood Pressure Last Admin: 04/10/17 21:16 Dose: 10 mg Hydromorphone HCl (Dilaudid) 0.5 mg IVP Q2 PRN PRN Reason: Pain, severe (8-10) Last Admin: 04/15/17 08:10 Dose: 0.5 mg Lactated Ringer's (Lactated Ringer's) 1,000 mls @ 100 drops/hr IV .Q24H [facility] Last Admin: 04/15/17 01:59 Dose: 100 drops/hr Ceftriaxone Sodium (Rocephin 1 Gram Ivpb) 1 gm in 100 mls @ 100 mls/hr IVPB DAILY [facility] PRN Reason: Protocol Last Admin: 04/15/17 09:55 Dose: 100 mls/hr Ibuprofen (Motrin Tab) 400 mg PO Q6H PRN PRN Reason: Fever >100.4 F Insulin Human Regular (Humulin R Low) 0 units SC ACHS [facility] PRN Reason: Protocol Last Admin: 04/15/17 12:19 Dose: 1 units Metformin HCl (Glucophage) 850 mg PO TID [facility] Last Admin: 04/15/17 09:55 Dose: 850 mg Metoprolol Tartrate (Lopressor) 25 mg PO BID [facility] Last Admin: 04/15/17 09:56 Dose: 25 mg Non-Formulary Medication (Acetaminophen [Tylenol Extra Strength]) 500 mg PO BID PRN PRN Reason: Pain, moderate (4-7) Oxycodone HCl (Oxycontin Extended Release Tab) 20 mg PO Q12 [facility] Last Admin: 04/15/17 09:56 Dose: 20 mg Pantoprazole Sodium (Protonix Ec Tab) 40 mg PO 0600 [facility] Last Admin: 04/14/17 05:13 Dose: 40 mg Polyethylene Glycol (Miralax) 17 gm PO BID PRN PRN Reason: Constipation Last Admin: 04/13/17 09:15 Dose: 17 gm Sennosides (Senokot Tab) 8.6 mg PO BID [facility] Last Admin: 04/15/17 09:56 Dose: 8.6 mg Tamsulosin HCl (Flomax) 0.4 mg PO QPM [facility] Last Admin: 04/14/17 18:05 Dose: 0.4 mg - Labs Labs: 04/15/17 07:00 04/15/17 10:40 PT 10.7 Seconds (9.9-11.8) 04/10/17 06:40 INR 0.99 (0.93-1.08) 04/10/17 06:40 APTT 25.7 Seconds (23.7-30.8) 04/10/17 06:40
[2017-04-15] MEDS ORDERED: Potassium Chloride 20 mEq ER Tab PO ONE (13:41)
--- NOTE | 2017-04-15 13:47 | CP.PCM.PN ---
<Harley Samuel - Last Filed: 04/15/17 21:09> Subjective - Date & Time of Evaluation Date of Evaluation: 04/15/17 Time of Evaluation: 07:15 - Subjective Subjective: Harley Samuel DO, PGY-1, Hospitalist Service Patient seen and examined at bedside. Patient states he has no BM since of last week. Patient states he still has some palpitations when walking or going to the bathroom. Patient was transfused 1 PRBC yesterday. No adverse effects noted per nurse. Patient denies any sustained chest pain, nausea , vomiting, or diaphoresis. Objective - Vital Signs/Intake and Output Vital Signs (last 24 hours): Temp Pulse Resp BP Pulse Ox 97.9 F 91 H 18 164/93 H 97 04/15/17 08:14 04/15/17 09:56 04/15/17 08:14 04/15/17 09:56 04/15/17 08:14 Intake and Output: 04/15/17 04/15/17 06:59 18:59 Intake Total 240 120 Output Total 300 250 Balance -60 -130 - Medications Medications: Current Medications Acetaminophen (Tylenol 325mg Tab) 650 mg PO Q6H PRN PRN Reason: Fever >100.4 F Last Admin: 04/11/17 21:05 Dose: 650 mg Ascorbic Acid (Vitamin C 500 Mg Tab) 500 mg PO DAILY [facility] Last Admin: 04/15/17 09:56 Dose: 500 mg Atorvastatin Calcium (Lipitor) 10 mg PO QPM [facility] Last Admin: 04/14/17 18:05 Dose: 10 mg Azithromycin (Zithromax) 500 mg PO DAILY [facility] PRN Reason: Protocol Last Admin: 04/15/17 09:55 Dose: 500 mg Bacitracin (Bacitracin) 0 gm TOP DAILY [facility] Last Admin: 04/15/17 09:55 Dose: 1 u Ferrous Sulfate (Feosol) 324 mg PO TID [facility] Last Admin: 04/12/17 17:32 Dose: 324 mg Hydralazine HCl (Apresoline) 10 mg IVP Q6 PRN PRN Reason: Systolic Blood Pressure Last Admin: 04/10/17 21:16 Dose: 10 mg Hydromorphone HCl (Dilaudid) 0.5 mg IVP Q2 PRN PRN Reason: Pain, severe (8-10) Last Admin: 04/15/17 08:10 Dose: 0.5 mg Lactated Ringer's (Lactated Ringer's) 1,000 mls @ 100 drops/hr IV .Q24H [facility] Last Admin: 04/15/17 01:59 Dose: 100 drops/hr Ceftriaxone Sodium (Rocephin 1 Gram Ivpb) 1 gm in 100 mls @ 100 mls/hr IVPB DAILY [facility] PRN Reason: Protocol Last Admin: 04/15/17 09:55 Dose: 100 mls/hr Ibuprofen (Motrin Tab) 400 mg PO Q6H PRN PRN Reason: Fever >100.4 F Insulin Human Regular (Humulin R Low) 0 units SC ACHS [facility] PRN Reason: Protocol Last Admin: 04/15/17 12:19 Dose: 1 units Metformin HCl (Glucophage) 850 mg PO TID [facility] Last Admin: 04/15/17 09:55 Dose: 850 mg Metoprolol Tartrate (Lopressor) 25 mg PO BID [facility] Last Admin: 04/15/17 09:56 Dose: 25 mg Non-Formulary Medication (Acetaminophen [Tylenol Extra Strength]) 500 mg PO BID PRN PRN Reason: Pain, moderate (4-7) Oxycodone HCl (Oxycontin Extended Release Tab) 20 mg PO Q12 [facility] Last Admin: 04/15/17 09:56 Dose: 20 mg Pantoprazole Sodium (Protonix Ec Tab) 40 mg PO 0600 [facility] Last Admin: 04/14/17 05:13 Dose: 40 mg Polyethylene Glycol (Miralax) 17 gm PO BID PRN PRN Reason: Constipation Last Admin: 04/13/17 09:15 Dose: 17 gm Potassium Chloride (K-Dur 20 Meq Er Tab) 40 meq PO ONCE ONE Stop: 04/15/17 13:42 Sennosides (Senokot Tab) 8.6 mg PO BID [facility] Last Admin: 04/15/17 09:56 Dose: 8.6 mg Tamsulosin HCl (Flomax) 0.4 mg PO QPM [facility] Last Admin: 04/14/17 18:05 Dose: 0.4 mg - Labs Labs: 04/15/17 07:00 04/15/17 10:40 PT 10.7 Seconds (9.9-11.8) 04/10/17 06:40 INR 0.99 (0.93-1.08) 04/10/17 06:40 APTT 25.7 Seconds (23.7-30.8) 04/10/17 06:40 - Constitutional Appears: Other (fatigued) - Head Exam Head Exam: ATRAUMATIC, NORMOCEPHALIC - Eye Exam Additional comments: Conjunctival pallor noted - ENT Exam ENT Exam: Mucous Membranes Moist, Normal Oropharynx - Respiratory Exam Respiratory Exam: Clear to Ausculation Bilateral, NORMAL BREATHING PATTERN - Cardiovascular Exam Cardiovascular Exam: RRR, +S1, +S2 - GI/Abdominal Exam GI & Abdominal Exam: Soft, Normal Bowel Sounds - Extremities Exam Extremities Exam: Normal Capillary Refill, Normal Inspection. absent: Pedal Edema - Back Exam Additional comments: patient outright refused my examination of his surgical site - Neurological Exam Neurological Exam: Awake, Oriented x3 Additional comments: lethargic, slow response to questioning, likely secondary to symptomatic anemia - Psychiatric Exam Psychiatric exam: Agitated - Skin Skin Exam: Pallor Assessment and Plan - Assessment and Plan (Free Text) Assessment: 56 year old male with history of HTN, HLD, DM2, BPH, and lumbar radiculopathy who underwent L3-4, 4-5 decompression few days ago. He had a presumed postoperative fever that has seemed to resolved given the absence of fever and leukocytosis. Yesterday, he reported palpitations, light-headedness with activity, and was found to have a Hgb of 7.7. He was transfused 1 unit of PRBC and repeat H&H is 8.3. Plan: 1a) Symptomatic anemia - 1 unit of PRBCs administered with no adverse events. Hbg 7.7--> 8.3 - Patient reports intermittent palpitations and light headedness with ambulation. - Will continue to monitor with daily CBCs and vitals q4h 2. Post-operative fever - No leukocytosis or fevers - UA negative for UTI - Lungs CTAB - Will continue to monitor via CBCs and vitals q4h 3. Hypertension - Metoprolol 25 BID [facility] - Lisinopril 5 mg PO [facility] 4. Diabetes Mellitus II -HgbA1c 6.8 - Metformin 850mg TID - C/W ISS- low ACHS 5. Urinary retention - C/W Flomax Daily - Bladder scan showed Dispo: Med/Surg, pending remaining results of septic workup FEN: Heart-healthy, LR 100cc/hr Access: Peripheral IV Consults: ID, Neurosurg (is primary) Ppx: Protonix for GI, SCDs for DVT 8) -Diet: Hearth Healthy Carbohydrate Modified, may eat as tolerated -continue ferrous sulfate and ascorbic acid -wound care team consulted, appreciate all assistance in this patient's care -continue PT/OT, who recommends discharge to home; ambulating today with walker and assistance. -will follow up neurosurgical recommendations Patient seen, reviewed, and discussed with attending, Dr. Holly Estrada <Holly Estrada - Last Filed: 04/24/17 18:20> Objective - Vital Signs/Intake and Output Vital Signs (last 24 hours): Temp Pulse Resp BP Pulse Ox 99.1 F 89 20 178/96 H 94 L 04/16/17 16:33 04/16/17 16:33 04/16/17 16:33 04/16/17 16:33 04/16/17 16:33 - Labs Labs: 04/16/17 14:22 04/16/17 14:22 PT 10.7 Seconds (9.9-11.8) 04/10/17 06:40 INR 0.99 (0.93-1.08) 04/10/17 06:40 APTT 25.7 Seconds (23.7-30.8) 04/10/17 06:40 Attending/Attestation - Attestation I have personally seen and examined this patient.: Yes I have fully participated in the care of the patient.: Yes I have reviewed all pertinent clinical information, including history, physical exam and plan: Yes Notes (Text): I have seen and examined the patient at bedside. Agree with the above note with the following additions / exceptions: Briefly this is 56 year old male with history of HTN, HLD, DM2, BPH, and lumbar radiculopathy who underwent L3-4, 4-5 decompression few days ago. He had postop fever which has resolved now. He has been afebrile for the past 2 days. Yesterday he complained of dizziness and palpitations especially upon standing up. Hb was noticed to be 7 and he was given 1 unit of prbc. Discussed in detail with Dr Em. Blood sugar is stable. Hba1c is 6.6. Continue ISS, metformin 850 TID and lopressor. Encourage to use incentive spirometer. Continue flomax. Upon discharge patient will follow up with PMD of choice. Dr Holly Estrada
[2017-04-15 13:50] LABS: URINE BILIRUBIN NEGATIVE (NEGATIVE); URINE BLOOD TRACE-LYSED (NEGATIVE); URINE GLUCOSE (UA) NEGATIVE (NEGATIVE); URINE KETONE 40 mg/dL (NEGATIVE); URINE LEUKOCYTE ESTERASE NEGATIVE Leu/uL (NEGATIVE); URINE PROTEIN 100 mg/dL (<30 mg/dL)
[2017-04-15 13:56] LABS: URINE APPEARANCE SL CLOUDY (CLEAR); URINE COLOR YELLOW (YELLOW)
[2017-04-15 13:57] LABS: URINE RBC 0 - 2 /hpf (0-2); URINE WBC NEGATIVE /hpf (0-6)
[2017-04-15 16:45] VITALS: RESP 20
--- NOTE | 2017-04-15 18:05 | CP.PCM.PN ---
Subjective - Date & Time of Evaluation Date of Evaluation: 04/15/17 Time of Evaluation: 16:45 - Subjective Subjective: Infectious Disease Follow Up: April 15, 2017 56 yo male with spinal L3-4 and L4-5 compression. Taken by neurosurgeon for decompression yesterday. The patient had fevers the day later. He does not report any new issues. Patient's back pain started in 2013 while lifting a heavy object. The patient can have post surgical fevers for up to 3 days. He is uncomfortable s/p surgery. Afebrile today. Patient feeling better. However, difficulty with voiding. The patient had mosher placed back today. Bladder distended. Remains afebrile. He makes some complaints of palpitations. s/p 1 unit PRBC transfusion. Objective - Vital Signs/Intake and Output Vital Signs (last 24 hours): Temp Pulse Resp BP Pulse Ox 97.8 F 87 20 171/99 H 98 04/15/17 16:43 04/15/17 16:43 04/15/17 16:43 04/15/17 16:43 04/15/17 16:43 Intake and Output: 04/15/17 04/15/17 06:59 18:59 Intake Total 240 120 Output Total 300 250 Balance -60 -130 - Medications Medications: Current Medications Acetaminophen (Tylenol 325mg Tab) 650 mg PO Q6H PRN PRN Reason: Fever >100.4 F Last Admin: 04/11/17 21:05 Dose: 650 mg Ascorbic Acid (Vitamin C 500 Mg Tab) 500 mg PO DAILY [facility] Last Admin: 04/15/17 09:56 Dose: 500 mg Atorvastatin Calcium (Lipitor) 10 mg PO QPM [facility] Last Admin: 04/14/17 18:05 Dose: 10 mg Azithromycin (Zithromax) 500 mg PO DAILY [facility] PRN Reason: Protocol Last Admin: 04/15/17 09:55 Dose: 500 mg Bacitracin (Bacitracin) 0 gm TOP DAILY [facility] Last Admin: 04/15/17 09:55 Dose: 1 u Ferrous Sulfate (Feosol) 324 mg PO TID [facility] Last Admin: 04/12/17 17:32 Dose: 324 mg Hydralazine HCl (Apresoline) 10 mg IVP Q6 PRN PRN Reason: Systolic Blood Pressure Last Admin: 04/10/17 21:16 Dose: 10 mg Hydromorphone HCl (Dilaudid) 0.5 mg IVP Q2 PRN PRN Reason: Pain, severe (8-10) Last Admin: 04/15/17 17:40 Dose: 0.5 mg Lactated Ringer's (Lactated Ringer's) 1,000 mls @ 100 drops/hr IV .Q24H [facility] Last Admin: 04/15/17 01:59 Dose: 100 drops/hr Ceftriaxone Sodium (Rocephin 1 Gram Ivpb) 1 gm in 100 mls @ 100 mls/hr IVPB DAILY [facility] PRN Reason: Protocol Last Admin: 04/15/17 09:55 Dose: 100 mls/hr Ibuprofen (Motrin Tab) 400 mg PO Q6H PRN PRN Reason: Fever >100.4 F Insulin Human Regular (Humulin R Low) 0 units SC ACHS [facility] PRN Reason: Protocol Last Admin: 04/15/17 12:19 Dose: 1 units Lisinopril (Zestril) 5 mg PO DAILY [facility] Metformin HCl (Glucophage) 850 mg PO TID [facility] Last Admin: 04/15/17 14:41 Dose: 850 mg Metoprolol Tartrate (Lopressor) 25 mg PO BID [facility] Last Admin: 04/15/17 09:56 Dose: 25 mg Non-Formulary Medication (Acetaminophen [Tylenol Extra Strength]) 500 mg PO BID PRN PRN Reason: Pain, moderate (4-7) Oxycodone HCl (Oxycontin Extended Release Tab) 20 mg PO Q12 [facility] Last Admin: 04/15/17 09:56 Dose: 20 mg Pantoprazole Sodium (Protonix Ec Tab) 40 mg PO 0600 [facility] Last Admin: 04/14/17 05:13 Dose: 40 mg Polyethylene Glycol (Miralax) 17 gm PO BID PRN PRN Reason: Constipation Last Admin: 04/13/17 09:15 Dose: 17 gm Sennosides (Senokot Tab) 8.6 mg PO BID [facility] Last Admin: 04/15/17 09:56 Dose: 8.6 mg Tamsulosin HCl (Flomax) 0.4 mg PO QPM [facility] Last Admin: 04/14/17 18:05 Dose: 0.4 mg - Labs Labs: 04/15/17 07:00 04/15/17 10:40 PT 10.7 Seconds (9.9-11.8) 04/10/17 06:40 INR 0.99 (0.93-1.08) 04/10/17 06:40 APTT 25.7 Seconds (23.7-30.8) 04/10/17 06:40 - Constitutional Appears: Non-toxic, No Acute Distress, Chronically Ill - Head Exam Head Exam: ATRAUMATIC, NORMOCEPHALIC - Eye Exam Eye Exam: EOMI, PERRL Pupil Exam: NORMAL ACCOMODATION, PERRL - ENT Exam ENT Exam: Mucous Membranes Moist, Normal External Ear Exam, TM's Normal Bilaterally - Neck Exam Neck Exam: Full ROM, Normal Inspection - Respiratory Exam Respiratory Exam: Clear to Ausculation Bilateral, NORMAL BREATHING PATTERN. absent: Rales, Rhonchi, Wheezes - Cardiovascular Exam Cardiovascular Exam: REGULAR RHYTHM, RRR, +S1, +S2 - GI/Abdominal Exam GI & Abdominal Exam: Soft, Tenderness, Normal Bowel Sounds. absent: Distended - Extremities Exam Extremities Exam: Full ROM, Normal Inspection - Neurological Exam Neurological Exam: Alert, Awake, Oriented x3 - Psychiatric Exam Psychiatric exam: Normal Affect, Normal Mood - Skin Skin Exam: Intact, Normal Color Assessment and Plan - Assessment and Plan (Free Text) Assessment: 56 yo male with decompression of L3-4 and L4-5 one day ago. Fever up to 102.0 F postsurgically with 24 hours. Noted on Rocephin and Azithromycin. Fevers are not uncommon in the first 24-72 post surgery. Supportive care. Would not add additional antibiotics at this time. Supportive care. Extensive medical history as listed above. Afebrile today. At most short course of antibiotics of three days or so. Supportive care. Noted mosher replaced due to bladder distension. s/p 1 unit PRBCs. Patient with complaints of occasional palpitations. Thank you for allowing me to participate in the care of the patient, we will follow with you.
[2017-04-15 18:39] VITALS: PULSE 89
[2017-04-16] MEDS: HYDROmorphone 0.5 mg/0.5 ml ISec IVP PRN (05:02)
[2017-04-16] MEDS: Pantoprazole 40 mg EC Tab PO SCH (06:34)
[2017-04-16] MEDS: Insulin Reg-LOW-Coverage SC SCH ×2 (08:46→12:21)
[2017-04-16] MEDS: POLYETHYLENE GLYCOL 3350 17 GM/Dose PACKET PO PRN (09:05)
[2017-04-16] MEDS: cefTRIAXone 1 gm 1 GM/100 ML BAG IVPB SCH (09:05)
[2017-04-16] MEDS: oxyCODONE 20 mg ER Tab (oxyCONTIN) PO SCH (09:05)
[2017-04-16] MEDS: Bacitracin Ointment 30 GM TUBE TOP SCH (09:08)
[2017-04-16 09:42] LABS: URINE BILIRUBIN NEGATIVE (NEGATIVE); URINE BLOOD TRACE-INTACT (NEGATIVE); URINE GLUCOSE (UA) NEGATIVE (NEGATIVE); URINE KETONE 40 mg/dL (NEGATIVE); URINE LEUKOCYTE ESTERASE NEGATIVE Leu/uL (NEGATIVE); URINE PROTEIN 100 mg/dL (<30 mg/dL)
[2017-04-16 09:43] LABS: URINE APPEARANCE SL CLOUDY (CLEAR); URINE COLOR YELLOW (YELLOW)
[2017-04-16 10:12] LABS: URINE RBC 0 - 2 /hpf (0-2); URINE WBC NEGATIVE /hpf (0-6)
[2017-04-16 11:31] LABS: BLOOD UREA NITROGEN 9 mg/dL (7-21); CALCIUM 8.8 mg/dL (8.4-10.5); CARBON DIOXIDE 29 mmol/L (21-33); CHLORIDE 99 mmol/L (98-107); GFR AFRICAN-AMERICAN > 60; GLUCOSE,RANDOM 192 mg/dL (70-110); POTASSIUM 3.8 mmol/L (3.6-5.0); SODIUM 136 mmol/L (132-148)
[2017-04-16] MEDS ORDERED: Oxycodone/Acetaminophen 5/325 mg Tab PO PRN (11:49)
--- NOTE | 2017-04-16 13:03 | CP.PCM.PN ---
<Harley Samuel - Last Filed: 04/16/17 16:30> Subjective - Date & Time of Evaluation Date of Evaluation: 04/16/17 Time of Evaluation: 13:00 - Subjective Subjective: Harley Samuel DO, PGY-1, Hospitalist Service Patient seen and examined at bedside. Patient c/o burning with urination, pain down the right lateral thigh (chronic), and no BM despite yesterday's bowel regiment. Objective - Vital Signs/Intake and Output Vital Signs (last 24 hours): Temp Pulse Resp BP Pulse Ox 97.7 F 89 20 136/92 H 97 04/16/17 06:00 04/16/17 09:06 04/16/17 06:00 04/16/17 09:06 04/16/17 06:00 Intake and Output: 04/16/17 04/16/17 06:59 18:59 Intake Total 1870 480 Output Total 1225 Balance 645 480 - Medications Medications: Current Medications Acetaminophen (Tylenol 325mg Tab) 650 mg PO Q6H PRN PRN Reason: Fever >100.4 F Last Admin: 04/11/17 21:05 Dose: 650 mg Ascorbic Acid (Vitamin C 500 Mg Tab) 500 mg PO DAILY [facility] Last Admin: 04/16/17 09:07 Dose: 500 mg Atorvastatin Calcium (Lipitor) 10 mg PO QPM [facility] Last Admin: 04/15/17 17:49 Dose: 10 mg Azithromycin (Zithromax) 500 mg PO DAILY [facility] PRN Reason: Protocol Last Admin: 04/16/17 09:06 Dose: 500 mg Bacitracin (Bacitracin) 0 gm TOP DAILY [facility] Last Admin: 04/16/17 09:08 Dose: 1 u Ferrous Sulfate (Feosol) 324 mg PO TID [facility] Last Admin: 04/12/17 17:32 Dose: 324 mg Hydralazine HCl (Apresoline) 10 mg IVP Q6 PRN PRN Reason: Systolic Blood Pressure Last Admin: 04/10/17 21:16 Dose: 10 mg Lactated Ringer's (Lactated Ringer's) 1,000 mls @ 100 drops/hr IV .Q24H [facility] Last Admin: 04/15/17 01:59 Dose: 100 drops/hr Ceftriaxone Sodium (Rocephin 1 Gram Ivpb) 1 gm in 100 mls @ 100 mls/hr IVPB DAILY [facility] PRN Reason: Protocol Last Admin: 04/16/17 09:05 Dose: 100 mls/hr Ibuprofen (Motrin Tab) 400 mg PO Q6H PRN PRN Reason: Fever >100.4 F Insulin Human Regular (Humulin R Low) 0 units SC ACHS [facility] PRN Reason: Protocol Last Admin: 04/16/17 12:21 Dose: 2 units Lisinopril (Zestril) 5 mg PO DAILY [facility] Last Admin: 04/16/17 09:06 Dose: 5 mg Metformin HCl (Glucophage) 850 mg PO TID [facility] Last Admin: 04/16/17 09:06 Dose: 850 mg Metoprolol Tartrate (Lopressor) 25 mg PO BID [facility] Last Admin: 04/16/17 09:06 Dose: 25 mg Non-Formulary Medication (Acetaminophen [Tylenol Extra Strength]) 500 mg PO BID PRN PRN Reason: Pain, moderate (4-7) Oxycodone HCl (Oxycontin Extended Release Tab) 20 mg PO Q12 [facility] Last Admin: 04/16/17 09:05 Dose: 20 mg Oxycodone/Acetaminophen (Percocet 5/325 Mg Tab) 1 tab PO Q4H PRN PRN Reason: Pain, moderate (4-7) Stop: 04/19/17 11:50 Pantoprazole Sodium (Protonix Ec Tab) 40 mg PO 0600 [facility] Last Admin: 04/16/17 06:34 Dose: 40 mg Phenazopyridine HCl (Pyridium) 200 mg PO PC [facility] Polyethylene Glycol (Miralax) 17 gm PO BID PRN PRN Reason: Constipation Last Admin: 04/16/17 09:05 Dose: 17 gm Sennosides (Senokot Tab) 8.6 mg PO BID [facility] Last Admin: 04/16/17 09:06 Dose: 8.6 mg Tamsulosin HCl (Flomax) 0.4 mg PO QPM [facility] Last Admin: 04/15/17 17:49 Dose: 0.4 mg - Labs Labs: 04/15/17 07:00 04/16/17 11:00 PT 10.7 Seconds (9.9-11.8) 04/10/17 06:40 INR 0.99 (0.93-1.08) 04/10/17 06:40 APTT 25.7 Seconds (23.7-30.8) 04/10/17 06:40 - Constitutional Appears: Non-toxic, No Acute Distress - Head Exam Head Exam: ATRAUMATIC, NORMOCEPHALIC - Eye Exam Eye Exam: EOMI, Normal appearance, PERRL - ENT Exam ENT Exam: Mucous Membranes Moist, Normal Oropharynx - Neck Exam Neck Exam: Full ROM, Normal Inspection - Respiratory Exam Respiratory Exam: Clear to Ausculation Bilateral, NORMAL BREATHING PATTERN. absent: Wheezes - Cardiovascular Exam Cardiovascular Exam: RRR, +S1, +S2 - GI/Abdominal Exam GI & Abdominal Exam: Soft, Hypoactive Bowel Sounds - Exam Exam: Bladder Distension - Extremities Exam Extremities Exam: Normal Capillary Refill, Normal Inspection - Back Exam Back Exam: NORMAL INSPECTION. absent: CVA tenderness (L), CVA tenderness (R) - Neurological Exam Neurological Exam: Alert, CN II-XII Intact, Oriented x3 - Psychiatric Exam Psychiatric exam: Normal Affect, Normal Mood - Skin Skin Exam: Normal Color, Warm Assessment and Plan - Assessment and Plan (Free Text) Assessment: 56 year old male with history of HTN, HLD, DM2, BPH, and lumbar radiculopathy who underwent L3-4, 4-5 decompression few days ago. He had a presumed postoperative fever that has seemed to resolved given the absence of fever and leukocytosis. 2 days ago, he reported palpitations, light-headedness with activity, and was found to have a Hgb of 7.7. He was transfused 1 unit of PRBC and repeat H&H is 8.3. Today his Hgb is 9 and he is without symptoms. Plan: 1a) Anemia, currently asymptomatic - Current Hgb is 9.1 and patient without symptoms. - Will endorse to patient that he should follow up with his PMD and get a CBC within the coming week. 2. Urinary retention in a post-surgical, constipated, patient with underlying BPH - Patient prescribed bowel regiment. - C/W Flomax - Patient discharged with recommendations to see urologist as an outpatient. 3. Hypertension - C/W home medications 4. Diabetes Mellitus II -HgbA1c 6.8 -Patient to c/w metformin and f/u PMD for glycemic control. 5. Post-operative issues: Contact Dr. Em. Patient discharged with recommendations to see urologist as an outpatient. For all other recommendations, please see primary team. Thank you for allowing us to participate in the care of your patient. <Holly Estrada - Last Filed: 04/24/17 18:36> Objective - Vital Signs/Intake and Output Vital Signs (last 24 hours): Temp Pulse Resp BP Pulse Ox 99.1 F 89 20 178/96 H 94 L 04/16/17 16:33 04/16/17 16:33 04/16/17 16:33 04/16/17 16:33 04/16/17 16:33 - Labs Labs: 04/16/17 14:22 04/16/17 14:22 PT 10.7 Seconds (9.9-11.8) 04/10/17 06:40 INR 0.99 (0.93-1.08) 04/10/17 06:40 APTT 25.7 Seconds (23.7-30.8) 04/10/17 06:40 Attending/Attestation - Attestation I have personally seen and examined this patient.: Yes I have fully participated in the care of the patient.: Yes I have reviewed all pertinent clinical information, including history, physical exam and plan: Yes Notes (Text): I have seen and examined the patient at bedside. Agree with the above note with the following additions / exceptions: Briefly this is 56 year old male with history of HTN, HLD, DM-2, BPH, and lumbar radiculopathy who underwent L3-4, 4-5 decompression few days ago. He had postop fever which has resolved now. He has been afebrile for the past 2 days. Yesterday he complained of dizziness and palpitations especially upon standing up. Hb was noticed to be 7 and he was given 1 unit of prbc. Discussed in detail with Dr Em. Blood sugar is stable. Hba1c is 6.6. Continue ISS, metformin 850 TID and lopressor. Encourage to use incentive spirometer. He has urinary retention but he is able to urinate. He is refusing mosher placement. Patient was advised to follow up with urologist as an outpatient. Continue flomax. Upon discharge patient will follow up with PMD of choice. Dr Holly Estrada
--- NOTE | 2017-04-16 13:33 | CP.PCM.PN ---
Subjective - Date & Time of Evaluation Date of Evaluation: 04/16/17 Time of Evaluation: 12:45 - Subjective Subjective: Infectious Disease Follow Up: April 15, 2017 56 yo male with spinal L3-4 and L4-5 compression. Taken by neurosurgeon for decompression yesterday. The patient had fevers the day later. He does not report any new issues. Patient's back pain started in 2013 while lifting a heavy object. The patient can have post surgical fevers for up to 3 days. He is uncomfortable s/p surgery. Afebrile today. Patient feeling better. However, difficulty with voiding. The patient had mosher placed back today. Bladder distended. Remains afebrile. He makes some complaints of palpitations. s/p 1 unit PRBC transfusion. The patient is still having difficulties with bowel movements. Objective - Vital Signs/Intake and Output Vital Signs (last 24 hours): Temp Pulse Resp BP Pulse Ox 97.7 F 89 20 136/92 H 97 04/16/17 06:00 04/16/17 09:06 04/16/17 06:00 04/16/17 09:06 04/16/17 06:00 Intake and Output: 04/16/17 04/16/17 06:59 18:59 Intake Total 1870 480 Output Total 1225 Balance 645 480 - Medications Medications: Current Medications Acetaminophen (Tylenol 325mg Tab) 650 mg PO Q6H PRN PRN Reason: Fever >100.4 F Last Admin: 04/11/17 21:05 Dose: 650 mg Ascorbic Acid (Vitamin C 500 Mg Tab) 500 mg PO DAILY [facility] Last Admin: 04/16/17 09:07 Dose: 500 mg Atorvastatin Calcium (Lipitor) 10 mg PO QPM [facility] Last Admin: 04/15/17 17:49 Dose: 10 mg Azithromycin (Zithromax) 500 mg PO DAILY [facility] PRN Reason: Protocol Last Admin: 04/16/17 09:06 Dose: 500 mg Bacitracin (Bacitracin) 0 gm TOP DAILY [facility] Last Admin: 04/16/17 09:08 Dose: 1 u Ferrous Sulfate (Feosol) 324 mg PO TID [facility] Last Admin: 04/12/17 17:32 Dose: 324 mg Hydralazine HCl (Apresoline) 10 mg IVP Q6 PRN PRN Reason: Systolic Blood Pressure Last Admin: 04/10/17 21:16 Dose: 10 mg Ceftriaxone Sodium (Rocephin 1 Gram Ivpb) 1 gm in 100 mls @ 100 mls/hr IVPB DAILY [facility] PRN Reason: Protocol Last Admin: 04/16/17 09:05 Dose: 100 mls/hr Ibuprofen (Motrin Tab) 400 mg PO Q6H PRN PRN Reason: Fever >100.4 F Insulin Human Regular (Humulin R Low) 0 units SC ACHS [facility] PRN Reason: Protocol Last Admin: 04/16/17 12:21 Dose: 2 units Lisinopril (Zestril) 5 mg PO DAILY [facility] Last Admin: 04/16/17 09:06 Dose: 5 mg Metformin HCl (Glucophage) 850 mg PO TID [facility] Last Admin: 04/16/17 09:06 Dose: 850 mg Metoprolol Tartrate (Lopressor) 25 mg PO BID [facility] Last Admin: 04/16/17 09:06 Dose: 25 mg Non-Formulary Medication (Acetaminophen [Tylenol Extra Strength]) 500 mg PO BID PRN PRN Reason: Pain, moderate (4-7) Oxycodone HCl (Oxycontin Extended Release Tab) 20 mg PO Q12 [facility] Last Admin: 04/16/17 09:05 Dose: 20 mg Oxycodone/Acetaminophen (Percocet 5/325 Mg Tab) 1 tab PO Q4H PRN PRN Reason: Pain, moderate (4-7) Stop: 04/19/17 11:50 Pantoprazole Sodium (Protonix Ec Tab) 40 mg PO 0600 [facility] Last Admin: 04/16/17 06:34 Dose: 40 mg Phenazopyridine HCl (Pyridium) 200 mg PO [facility] Polyethylene Glycol (Miralax) 17 gm PO BID PRN PRN Reason: Constipation Last Admin: 04/16/17 09:05 Dose: 17 gm Sennosides (Senokot Tab) 8.6 mg PO BID [facility] Last Admin: 04/16/17 09:06 Dose: 8.6 mg Tamsulosin HCl (Flomax) 0.4 mg PO QPM [facility] Last Admin: 04/15/17 17:49 Dose: 0.4 mg - Labs Labs: 04/15/17 07:00 04/16/17 11:00 PT 10.7 Seconds (9.9-11.8) 04/10/17 06:40 INR 0.99 (0.93-1.08) 04/10/17 06:40 APTT 25.7 Seconds (23.7-30.8) 04/10/17 06:40 - Constitutional Appears: Non-toxic, No Acute Distress, Chronically Ill - Head Exam Head Exam: ATRAUMATIC, NORMOCEPHALIC - Eye Exam Eye Exam: EOMI, PERRL Pupil Exam: NORMAL ACCOMODATION, PERRL - ENT Exam ENT Exam: Mucous Membranes Moist, Normal External Ear Exam, TM's Normal Bilaterally - Neck Exam Neck Exam: Full ROM, Normal Inspection - Respiratory Exam Respiratory Exam: Clear to Ausculation Bilateral, NORMAL BREATHING PATTERN. absent: Rales, Rhonchi, Wheezes - Cardiovascular Exam Cardiovascular Exam: REGULAR RHYTHM, RRR, +S1, +S2 - GI/Abdominal Exam GI & Abdominal Exam: Soft, Normal Bowel Sounds. absent: Distended, Tenderness - Extremities Exam Extremities Exam: Full ROM, Normal Inspection - Neurological Exam Neurological Exam: Alert, Awake, CN II-XII Intact, Oriented x3 - Psychiatric Exam Psychiatric exam: Normal Affect, Normal Mood - Skin Skin Exam: Intact, Normal Color Assessment and Plan - Assessment and Plan (Free Text) Assessment: 56 yo male with decompression of L3-4 and L4-5 one day ago. Fever up to 102.0 F postsurgically with 24 hours. Noted on Rocephin and Azithromycin. Fevers are not uncommon in the first 24-72 post surgery. Supportive care. Would not add additional antibiotics at this time. Supportive care. Extensive medical history as listed above. Afebrile today. At most short course of antibiotics of three days or so. Supportive care. Noted mosher replaced due to bladder distension. s/p 1 unit PRBCs. Patient with complaints of occasional palpitations. Still with bowel movement issues. Thank you for allowing me to participate in the care of the patient, we will follow with you.
[2017-04-16 14:27] LABS: BASO # 0.02 K/mm3 (0.0-2.0); BASO % 0.3 % (0.0-3.0); EOS # 0.7 (0.0-0.7); EOS % 8.9 % (1.5-5.0); GRAN # 4.58 (1.4-6.5); GRAN % 57.3 % (50.0-68.0); HEMATOCRIT 25.9 % (42.0-52.0); LYMPH # 1.9 (1.2-3.4); LYMPH % 24.1 % (22.0-35.0); MEAN CELL VOLUME 84.4 fl (80.0-105.0); MEAN CORPUSCULAR HEMOGLOBIN 29.6 pg (25.0-35.0); MEAN CORPUSCULAR HGB CONC 35.1 g/dl (31.0-37.0); MONO # 0.8 (0.1-0.6); MONO % 9.4 % (1.0-6.0); RED CELL DISTRIBUTION WIDTH 12.6 % (11.5-14.5)
[2017-04-16 14:34] LABS: ALB/GLOB RATIO 0.9 (1.1-1.8); ALKALINE PHOSPHATASE 153 U/L (38-133); ALT/SGPT 63 U/L (7-56); AST/SGOT 60 U/L (15-59); BILIRUBIN,TOTAL 0.5 mg/dL (0.2-1.3); BLOOD UREA NITROGEN 9 mg/dL (7-21); CALCIUM 8.8 mg/dL (8.4-10.5); CARBON DIOXIDE 29 mmol/L (21-33); CHLORIDE 98 mmol/L (98-107); GFR AFRICAN-AMERICAN > 60; GLUCOSE,RANDOM 161 mg/dL (70-110); POTASSIUM 3.7 mmol/L (3.6-5.0); SODIUM 136 mmol/L (132-148); TOTAL PROTEIN 6.5 g/dL (5.8-8.3)
--- NOTE | 2017-04-16 14:42 | CP.PCM.PN ---
Subjective - Date & Time of Evaluation Date of Evaluation: 04/16/17 Time of Evaluation: 14:41 - Subjective Subjective: SPINE - POD #6 Pt OOB in chair. Able to amb on own in hallway. Reportedly did stairs. Cleared by PT so will d/c home. Call office for f/u. Objective - Vital Signs/Intake and Output Vital Signs (last 24 hours): Temp Pulse Resp BP Pulse Ox 97.7 F 89 20 136/92 H 97 04/16/17 06:00 04/16/17 09:06 04/16/17 06:00 04/16/17 09:06 04/16/17 06:00 Intake and Output: 04/16/17 04/16/17 06:59 18:59 Intake Total 1870 480 Output Total 1225 Balance 645 480 - Medications Medications: Current Medications Acetaminophen (Tylenol 325mg Tab) 650 mg PO Q6H PRN PRN Reason: Fever >100.4 F Last Admin: 04/11/17 21:05 Dose: 650 mg Ascorbic Acid (Vitamin C 500 Mg Tab) 500 mg PO DAILY [facility] Last Admin: 04/16/17 09:07 Dose: 500 mg Atorvastatin Calcium (Lipitor) 10 mg PO QPM [facility] Last Admin: 04/15/17 17:49 Dose: 10 mg Azithromycin (Zithromax) 500 mg PO DAILY [facility] PRN Reason: Protocol Last Admin: 04/16/17 09:06 Dose: 500 mg Bacitracin (Bacitracin) 0 gm TOP DAILY [facility] Last Admin: 04/16/17 09:08 Dose: 1 u Ferrous Sulfate (Feosol) 324 mg PO TID [facility] Last Admin: 04/12/17 17:32 Dose: 324 mg Hydralazine HCl (Apresoline) 10 mg IVP Q6 PRN PRN Reason: Systolic Blood Pressure Last Admin: 04/10/17 21:16 Dose: 10 mg Ceftriaxone Sodium (Rocephin 1 Gram Ivpb) 1 gm in 100 mls @ 100 mls/hr IVPB DAILY [facility] PRN Reason: Protocol Last Admin: 04/16/17 09:05 Dose: 100 mls/hr Ibuprofen (Motrin Tab) 400 mg PO Q6H PRN PRN Reason: Fever >100.4 F Insulin Human Regular (Humulin R Low) 0 units SC ACHS [facility] PRN Reason: Protocol Last Admin: 04/16/17 12:21 Dose: 2 units Lisinopril (Zestril) 5 mg PO DAILY [facility] Last Admin: 04/16/17 09:06 Dose: 5 mg Metformin HCl (Glucophage) 850 mg PO TID [facility] Last Admin: 04/16/17 13:24 Dose: 850 mg Metoprolol Tartrate (Lopressor) 25 mg PO BID [facility] Last Admin: 04/16/17 09:06 Dose: 25 mg Non-Formulary Medication (Acetaminophen [Tylenol Extra Strength]) 500 mg PO BID PRN PRN Reason: Pain, moderate (4-7) Oxycodone HCl (Oxycontin Extended Release Tab) 20 mg PO Q12 [facility] Last Admin: 04/16/17 09:05 Dose: 20 mg Oxycodone/Acetaminophen (Percocet 5/325 Mg Tab) 1 tab PO Q4H PRN PRN Reason: Pain, moderate (4-7) Stop: 04/19/17 11:50 Pantoprazole Sodium (Protonix Ec Tab) 40 mg PO 0600 [facility] Last Admin: 04/16/17 06:34 Dose: 40 mg Phenazopyridine HCl (Pyridium) 200 mg PO PC [facility] Last Admin: 04/16/17 13:24 Dose: 200 mg Polyethylene Glycol (Miralax) 17 gm PO BID PRN PRN Reason: Constipation Last Admin: 04/16/17 09:05 Dose: 17 gm Sennosides (Senokot Tab) 8.6 mg PO BID [facility] Last Admin: 04/16/17 09:06 Dose: 8.6 mg Tamsulosin HCl (Flomax) 0.4 mg PO QPM [facility] Last Admin: 04/15/17 17:49 Dose: 0.4 mg - Labs Labs: 04/16/17 14:22 04/16/17 14:22 PT 10.7 Seconds (9.9-11.8) 04/10/17 06:40 INR 0.99 (0.93-1.08) 04/10/17 06:40 APTT 25.7 Seconds (23.7-30.8) 04/10/17 06:40
--- NOTE | 2017-04-16 16:18 | CP.PCM.PN ---
Subjective - Date & Time of Evaluation Date of Evaluation: 04/16/17 Time of Evaluation: 16:16 - Subjective Subjective: Patient discharged with recommendations to see urologist as an outpatient. For all other recommendations, please see primary team. Thank you for allowing us to participate in the care of your patient. Objective - Vital Signs/Intake and Output Vital Signs (last 24 hours): Temp Pulse Resp BP Pulse Ox 97.7 F 89 20 136/92 H 97 04/16/17 06:00 04/16/17 09:06 04/16/17 06:00 04/16/17 09:06 04/16/17 06:00 Intake and Output: 04/16/17 04/16/17 06:59 18:59 Intake Total 1870 480 Output Total 1225 Balance 645 480 - Medications Medications: Current Medications Acetaminophen (Tylenol 325mg Tab) 650 mg PO Q6H PRN PRN Reason: Fever >100.4 F Last Admin: 04/11/17 21:05 Dose: 650 mg Ascorbic Acid (Vitamin C 500 Mg Tab) 500 mg PO DAILY [facility] Last Admin: 04/16/17 09:07 Dose: 500 mg Atorvastatin Calcium (Lipitor) 10 mg PO QPM [facility] Last Admin: 04/15/17 17:49 Dose: 10 mg Azithromycin (Zithromax) 500 mg PO DAILY [facility] PRN Reason: Protocol Last Admin: 04/16/17 09:06 Dose: 500 mg Bacitracin (Bacitracin) 0 gm TOP DAILY [facility] Last Admin: 04/16/17 09:08 Dose: 1 u Ferrous Sulfate (Feosol) 324 mg PO TID [facility] Last Admin: 04/12/17 17:32 Dose: 324 mg Hydralazine HCl (Apresoline) 10 mg IVP Q6 PRN PRN Reason: Systolic Blood Pressure Last Admin: 04/10/17 21:16 Dose: 10 mg Ceftriaxone Sodium (Rocephin 1 Gram Ivpb) 1 gm in 100 mls @ 100 mls/hr IVPB DAILY [facility] PRN Reason: Protocol Last Admin: 04/16/17 09:05 Dose: 100 mls/hr Ibuprofen (Motrin Tab) 400 mg PO Q6H PRN PRN Reason: Fever >100.4 F Insulin Human Regular (Humulin R Low) 0 units SC ACHS [facility] PRN Reason: Protocol Last Admin: 04/16/17 12:21 Dose: 2 units Lisinopril (Zestril) 5 mg PO DAILY [facility] Last Admin: 04/16/17 09:06 Dose: 5 mg Metformin HCl (Glucophage) 850 mg PO TID [facility] Last Admin: 04/16/17 13:24 Dose: 850 mg Metoprolol Tartrate (Lopressor) 25 mg PO BID [facility] Last Admin: 04/16/17 09:06 Dose: 25 mg Non-Formulary Medication (Acetaminophen [Tylenol Extra Strength]) 500 mg PO BID PRN PRN Reason: Pain, moderate (4-7) Oxycodone HCl (Oxycontin Extended Release Tab) 20 mg PO Q12 [facility] Last Admin: 04/16/17 09:05 Dose: 20 mg Oxycodone/Acetaminophen (Percocet 5/325 Mg Tab) 1 tab PO Q4H PRN PRN Reason: Pain, moderate (4-7) Stop: 04/19/17 11:50 Pantoprazole Sodium (Protonix Ec Tab) 40 mg PO 0600 [facility] Last Admin: 04/16/17 06:34 Dose: 40 mg Phenazopyridine HCl (Pyridium) 200 mg PO PC [facility] Last Admin: 04/16/17 13:24 Dose: 200 mg Polyethylene Glycol (Miralax) 17 gm PO BID PRN PRN Reason: Constipation Last Admin: 04/16/17 09:05 Dose: 17 gm Sennosides (Senokot Tab) 8.6 mg PO BID [facility] Last Admin: 04/16/17 09:06 Dose: 8.6 mg Tamsulosin HCl (Flomax) 0.4 mg PO QPM [facility] Last Admin: 04/15/17 17:49 Dose: 0.4 mg - Labs Labs: 04/16/17 14:22 04/16/17 14:22 PT 10.7 Seconds (9.9-11.8) 04/10/17 06:40 INR 0.99 (0.93-1.08) 04/10/17 06:40 APTT 25.7 Seconds (23.7-30.8) 04/10/17 06:40 - Head Exam Additional comments: Constitutional Appears: Non-toxic, No Acute Distress - Head Exam Head Exam: ATRAUMATIC, NORMOCEPHALIC - Eye Exam Eye Exam: EOMI, Normal appearance, PERRL - ENT Exam ENT Exam: Mucous Membranes Moist, Normal Oropharynx - Neck Exam Neck Exam: Full ROM, Normal Inspection - Respiratory Exam Respiratory Exam: Clear to Ausculation Bilateral, NORMAL BREATHING PATTERN. absent: Wheezes - Cardiovascular Exam Cardiovascular Exam: RRR, +S1, +S2 - GI/Abdominal Exam GI & Abdominal Exam: Soft, Hypoactive Bowel Sounds - Exam Exam: Bladder Distension - Extremities Exam Extremities Exam: Normal Capillary Refill, Normal Inspection - Back Exam Back Exam: NORMAL INSPECTION. absent: CVA tenderness (L), CVA tenderness (R) - Neurological Exam Neurological Exam: Alert, CN II-XII Intact, Oriented x3 - Psychiatric Exam Psychiatric exam: Normal Affect, Normal Mood - Skin Skin Exam: Normal Color, Warm
[2017-04-16 16:34] VITALS: BP 178/96; TEMP 99.1; O2SAT 94
[2017-04-17] MEDS ORDERED: cefTRIAXone 2 GM IN NS 2 GM/100 ML BAG IVPB SCH (10:00)
== END 2017-04-16 18:03 | disposition home or self-care (01) | DRG 460 ==
LOC: SDAINP 04-10 06:13 → EDSTATUS 04-10 07:30 → 3RNO 04-10 14:25
PROVIDERS: ADMIT Hospitalist; ATTEND Neurological Surgery
PROC: 0SG00A1 (ICD-10-PCS; 2017-04-10)
PROC: 01NB0ZZ Release Lumbar Nerve, Open Approach (ICD-10-PCS; 2017-04-10)
PROC: 0SB40ZZ Excision of Lumbosacral Disc, Open Approach (ICD-10-PCS; 2017-04-10)
PROC: 0SB20ZZ Excision of Lumbar Vertebral Disc, Open Approach (ICD-10-PCS; 2017-04-10)
PROC: 07DR3ZZ Extraction of Iliac Bone Marrow, Percutaneous Approach (ICD-10-PCS; 2017-04-10)
PROC: 0SG30A1 (ICD-10-PCS; principal; 2017-04-10 07:30)
PROC: 30233N1 Transfusion of Nonautologous Red Blood Cells into Peripheral Vein, Percutaneous Approach (ICD-10-PCS; 2017-04-14)
DX: M51.17 Intervertebral disc disorders with radiculopathy, lumbosacral region (principal); M51.16 Intervertebral disc disorders with radiculopathy, lumbar region; M48.06 Spinal stenosis, lumbar region; M48.07 Spinal stenosis, lumbosacral region; M53.2X6 Spinal instabilities, lumbar region; I10 Essential (primary) hypertension; E11.9 Type 2 diabetes mellitus without complications; G89.29 Other chronic pain; E78.5 Hyperlipidemia, unspecified; K59.00 Constipation, unspecified; R74.0 Nonspecific elevation of levels of transaminase and lactic acid dehydrogenase [LDH]; R50.82 Postprocedural fever; N40.1 Benign prostatic hyperplasia with lower urinary tract symptoms; R33.8 Other retention of urine; R00.2 Palpitations